=== PATIENT | female | born 1980 | race Caucasian/White ===

== ENCOUNTER 2019-10-16 19:02 | Inpatient (IN) | payer SELFPAY ==
[2019-10-16 19:14] VITALS: BP 145/98; PULSE 125; RESP 14; TEMP 35.8; O2SAT 97; BMI 24.7
--- NOTE | 2019-10-16 19:33 | ECG_ITS ---
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 Measurements Intervals [place] Rate: 94 P: 70 WI: 133 QRS: 68 QRSD: 82 T: 60 QT: 341 QTc: 428 Interpretive Statements SINUS RHYTHM No previous ECG available for comparison Electronically Signed On 10-17-2019 19:03:26 CDT by Emeli Montes M.D. [id number]
--- NOTE | 2019-10-16 19:45 | ED_ITS ---
HPI - Psych General: Chief Complaint: Psychiatric Symptoms Stated Complaint: suicidal Time Seen by Provider: 10/16/19 19:33 Source: patient Mode of arrival: ambulatory Limitations: no limitations History of Present Illness: HPI Narrative: Elly is a 38-year-old female who comes in feeling suicidal. She states she is very depressed and has cycles of severe depression. She states she has a plan to kill herself and that plan is to drive out into traffic in her car. Patient currently wants to get help but denies any previous ingestions. Review of Systems Const: Denies: fever(s), chills, body aches, fatigue, malaise or diaphoresis Eyes: Denies: change in vision, blurry vision, blind spots, photophobia, eye discharge or eye redness ENMT: Denies: throat pain, odynophagia, hoarseness, swelling of lips/tongue, oral sores, ear or mastoid pain, ear discharge, change in hearing or nasal discharge Card: Denies: chest pain, palpitations, irregular heart rhythm, edema, lightheadedness, syncope, pre-syncope, dyspnea on exertion or orthopnea Resp: Denies: dyspnea, productive cough, non-productive cough, wheezing, hemoptysis or chest congestion GI: Denies: abdominal pain, nausea, vomiting, hematemesis, coffee ground emesis, heartburn, diarrhea, constipation, GI cramping, hematochezia or melena : Denies: flank pain, dysuria, urinary frequency, urinary urgency or hematuria Musc: Denies: neck pain, back pain, extremity pain, extremity swelling, joint pain, joint swelling, joint redness, joint warmth or joint stiffness Skin/Breast: Denies: rash, pruritus, erythema, skin tenderness or jaundice Neuro: Denies: headache(s), numbness in extremities, weakness in extremities, sensory changes, lack of coordination, difficulty walking, dizziness, vertigo, confusion, Slurred speech present or seizure-like activity Cooper/Lymph: Denies: easy bruising, easy bleeding, petechiae, purpura or enlarged lymph nodes All/Imm: Denies: urticaria, throat swelling, tongue swelling, facial swelling or acute wheezing PFS ED PFSH: Medical History Anxiety Depression PTSD (post-traumatic stress disorder) Physical Exam Const: COMMON NORMALS: no acute distress, patient oriented x3, no limitations, healthy appearing and well nourished GENERAL APPEARANCE: cooperative, well kempt and well developed HENMT: COMMON NORMALS: normocephalic, atraumatic, external ears normal, EAC's normal and Normal external nose present HEAD & SCALP: normal to inspection, normocephalic and atraumatic FACE & SINUS: normal facial exam and face symmetric NOSE: Normal external nose present and Normal nares present EXTERNAL EAR: Yes external ears normal EXTERNAL AUDITORY CANAL: EAC's normal MOUTH: Normal oral and palatal mucosa present, lip normal and tongue normal Eye: COMMON NORMALS: Equal, round and reactive pupils present and conjunctivae normal GENERAL EYE: appearance normal, both eyes and all related structures ALIGNMENT: Yes alignment normal PERIORBITAL: periorbital findings normal EYELID: eyelids normal CONJUNCTIVA: Yes conjunctivae normal SCLERA: sclerae normal PUPIL: Yes Equal, round and reactive pupils present Neck/C-Spine: COMMON NORMALS: full ROM, no lymphadenopathy, supple, no meningeal signs and no JVD GENERAL: Yes normal visual inspection and Yes trachea midline Chest: COMMONS NORMALS: normal inspection of the chest and normal palpation of entire chest wall Resp: COMMON NORMALS: normal respiratory effort, No retractions and No use of accessory muscles EFFORT & INSPECTION: Yes able to speak in complete sentences and Yes symmetric chest movement AUSCULTATION: no crackles, no rales, no rhonchi and no wheezes Cardio: COMMON NORMALS: no JVD, regular rate, regular rhythm, S1 normal heart sound present and S2 normal heart sound present RATE: regular rate RHYTHM: regular rhythm HEART SOUNDS: S1 normal heart sound present, S2 normal heart sound present, no click, no gallops, no murmurs, no rubs and abnormal split S2 GI: COMMON NORMALS: Soft to palpation and No hepatosplenomegaly present PALPATION: Yes Soft to palpation, No Tenderness to palpation present (GI), No Guarding due to palpation present (GI), No Rigid due to palpation, Yes No hepatosplenomegaly present, No Hernia present, No Palpable mass present and No Pulsatile mass present : COMMON NORMALS: Yes no CVA tenderness BLADDER/KIDNEY EXAM: Yes no CVA tenderness EXTERNAL FEMALE EXAM: No Hernia present Back/Pelvis: COMMON NORMALS: no CVA tenderness, thoracic and lumbar spine normal to inspection, no thoracic nor lumbar tenderness and thoraco-lumbar ROM normal Extremity: COMMON NORMALS: normal to inspection, full ROM, capillary refill normal, no joint enlargement, no clubbing, cyanosis or edema and no calf tenderness Neuro: COMMON NORMALS: patient oriented x3, CN's II-XII intact bilaterally, moves all extremities, no focal motor deficits and no sensory deficits noted MENINGEAL SIGNS: Yes no meningeal signs SPEECH: speech normal Psych: COMMON NORMALS: mental status grossly normal, Normal thought process present, cooperative, normal affect, speech normal and activity/motor behavior normal APPEARANCE: Yes well kempt SPEECH: Yes normal speech THOUGHT PROCESS: Normal thought process present Skin: COMMON NORMALS: no rashes or lesions noted, turgor normal, no jaundice, no petechiae and no mottling GENERAL SKIN EXAM: no rashes or lesions noted and turgor normal MDM - Psych MDM Narrative: Medical decision making narrative: The case was reviewed with Dr. Green and he agrees to admit the patient for psychiatric evaluation. EKG Data^: EKG 1: Attestation: I personally reviewed and interpreted this EKG as follows: EKG interpretation date: 10/16/19 EKG interpretation time: 20:06 Interpretation: Normal sinus rhythm at 94 beats a minute, no acute ST-T wave changes. No blocks, normal intervals. Discharge Plan Discharge Patient Disposition: Placed in Observation Admit Provider: Antolin Green Clinical Impression: Suicidal ideation, Depression, PTSD (post-traumatic stress disorder), Anxiety Condition: Stable Coding Level of Care Code ED Supervisor Dry Cleaning for Chg Fwadoins
[2019-10-16 19:55] LABS: Basophils % 0.5 %; Eosinophils # 0.1 10^3/uL (0.0-0.8); Eosinophils % 1.7 %; Hematocrit 48.1 % (37.0-47.0); Hemoglobin 16.1 g/dL (11.5-15.3); Lymphocytes # 2.6 10^3/uL (0.8-4.8); Lymphocytes % 33.9 %; Mean Corpuscular HGB Conc 33.5 g/dL (30.0-36.0); Mean Corpuscular Volume 89.6 fL (81-99); Mean Platelet Volume 9.5 fL (7.4-10.4); Monocytes # 0.6 10^3/uL (0.2-0.9); Monocytes % 7.9 %; Neutrophils # 4.25 10^3/uL (1.8-7.7); Neutrophils % 55.6 %; Nucleated Red Blood Cells % 0 %; Platelet Count 332 10^3/cmm (130-400); Red Blood Count 5.37 10^6/uL (4.1-5.3); Red Cell Distribution Width 12.1 % (12.1-15.1); White Blood Count 7.6 10^3/uL (4.0-10.0)
[2019-10-16] MEDS: LORazepam 2 mg Tablet PO (20:01)
[2019-10-16 20:50] LABS: Lithium 0.1 mmol/L (0.6-1.2)
[2019-10-16 20:51] LABS: Alanine Aminotransferase 17 U/L (0-33); Albumin Level 4.8 g/dL (3.5-5.2); Alcohol Level 102 mg/dL (0-10); Alkaline Phosphatase 66 IU/L (35-105); Anion Gap 19.6 (5-19); Aspartate Amino Transferase 17 U/L (0-32); Blood Urea Nitrogen 9 mg/dL (6-20); Calcium 10.2 mg/dL (8.5-10.5); Carbon Dioxide 20 mmol/L (22-29); Chloride 103 mmol/L (98-107); Globulin 2.5 g/dL (1.3-4.6); Glomerular Filtration Rate 92.7 mL/min (90-130); Glucose 120 mg/dL (65-115); Osmolality Calculated 285 mOsm/kg (285-295); Phenytoin Dilantin 0.8 ug/mL (10-20); Potassium 3.6 mmol/L (3.5-5.1); Sodium 139 mmol/L (136-145); Thyroid Stimulating Hormone 0.73 uIU/mL (0.27-4.20); Total Bilirubin 0.3 mg/dL (0.15-1.2); Total Protein 7.3 g/dL (6.6-8.7); Valproic Acid Level 2.8 ug/mL (50-100)
[2019-10-16 21:05] LABS: INR 0.91 (0.8-1.2)
[2019-10-16 21:13] LABS: Acetaminophen < 5.0 ug/mL (10-30); Salicylate < 0.3 mg/dL (3-10)
[2019-10-16 21:14] VITALS: BP 132/84; PULSE 86; RESP 14; O2SAT 99
[2019-10-16 22:04] VITALS: BP 122/86; PULSE 89; RESP 17; TEMP 36.7; O2SAT 98
[2019-10-16 22:23] LABS: HCG, Serum Qual Negative (Negative)
[2019-10-16 23:21] LABS: Add Urine Microscopic? YES; Bilirubin Urine Neg (NEGATIVE); Blood Urine Neg (Negative); Glucose Urine UA Norm (Normal); Ketones Urine Negative (Negative); Leukocyte Esterase Urine Negative (Negative); Nitrate Urine Negative (Negative); Protein Urine Neg (Negative); Specific Gravity, Urine 1.015 (1.005-1.030); Urine Appearance SL Hazy (CLEAR); Urine Color Yellow (Yellow); Urobilinogen Urine Norm (Negative); pH Urine 5 (5-7)
[2019-10-16 23:22] LABS: Bacteria Urine 1+; RBC Urine 0-4 /hpf (0-2); Squamous Epithelial Cell Urine 15-25 (0-5); WBC Urine 0-4 /hpf (0-5)
[2019-10-16 23:38] LABS: Amphetamines Screen Urine Positive (Negative); Barbiturates Screen Urine Negative (Negative); Benzodiazepines Screen Urine Positive (Negative); Cocaine Screen Urine Negative (Negative); Opiate Screen Urine Negative (Negative); PCP Screen Urine Negative (Negative); THC Screen Urine Positive (Negative)
[2019-10-17 06:00] VITALS: BP 115/77; PULSE 75; RESP 16; TEMP 36.7; O2SAT 98
[2019-10-17] MEDS: nicotine 2 mg Gum BUCCAL (13:04)
[2019-10-17 14:00] VITALS: BP 120/81; PULSE 72; RESP 18; TEMP 36.5; O2SAT 99
[2019-10-17] MEDS: acetaminophen 325 mg Tablet 650 MG PO (14:25)
--- NOTE | 2019-10-17 16:34 | PM.NHP ---
Providers/Chief Complaint Admitting Physician: Antolin Green MD Primary Care Provider: SUHAS Monteiro Chief Complaint: mhe HPI NPU History of Present Illness Elly Rosado is a 38 year old female who has been successfully treated for depression in the past with Lunesta but stopped taking the medication for financial reasons about 6 months ago. Over the past month, she has become increasingly despondent, irritable, and dominated by feelings of hopelessness and worthlessness. She has difficulty sleeping. Her brain health is compromised by a work schedule that requires her to should change shifts. She has poor hedonic capacity and is not looking forward to anything coming up in the future. She reports anhedonia. She also reports a significant levels of substance use but does not think that her alcohol and methamphetamine and marijuana use are an issue in her level of depression. A week ago she started having a suicidal thoughts. Finally in the past several days, she reached a point where she realized she had to get something done. She denied active suicide intent or plan but felt that that would be a logical outcome if no intervention were provided. She has no history of heriberto or manic symptoms. Her urine drug screen shows: Laboratory Tests 10/16/19 10/16/19 19:46 22:34 Urine Opiates Screen Negative Ur Barbiturates Screen Negative Ur Phencyclidine Scrn Negative Ur Amphetamines Screen Positive H U Benzodiazepines Scrn Positive H Urine Cocaine Screen Negative U Marijuana (THC) Screen Positive H Ethyl Alcohol 102 H She says that she used amphetamines a few days ago. She says she smokes marijuana regularly. She denies that he uses alcohol in excess. However it is also noted that she is quite vague when pressed for exact frequency and severity of use. She does not feel that rehabilitation programs are necessary intervention for her and believes that she will cease her substance use when she is no longer depressed. She gives her history of doing that when she was last on Pristiq as evidenced. Mental health history: She has 1 prior hospitalization in this facility in 2014. Up until May 2019, she was taking Pristiq 100 mg daily. She has not worked for her continuously for a period of 3 years. She stopped the medication because she ran out of money. She did report significant withdrawal symptoms once stopping it suddenly. However she is willing to risk again experiencing that withdrawal to get the benefit of going back on the medication. She also has taken Lunesta 3 mg at bedtime for sleep. She last saw her outpatient psychiatrist in March 2020: RECENT/INTERVAL HISTORY: 38 yr old female, presents to [facility] today for medication management. -Continues to report sleep pattern as excessive, I would rather sleep then fight with my family, my depression is getting worse, my daughter had a melt down and wanted to commit suicide, she also lost her virginity, after Thanksgiving had to confront my dad with a movie of child porn, called police, then got scared and burned the tape, and so lost my relationship with my dad and sister, and relationship with boyfriend of almost 15 years is on the garcia, a lot has been going on, with boyfriend saying the medication isn't working, so been smoking a lot of pot so can relax for a minute, went out drinking with friends two weeks ago, bottle of whiskey, fell on face trying to go pee . -Depressive episodes increased with anxiety, feeling fatigued and tired all the time, went to PCP, and was referred to orthopedic surgeon, and will now have to have surgery on left hand for ligament repair. -Nutritional intake reported as adequate, no appetite; taking Vistaril 50 mg two to three times per day. -Elly denies suicidal ideation/plan, denies homicidal ideation/plan, auditory/visual hallucinations; no delusions or paranoia. ASSESSMENT: 1. Major depressive disorder recurrent, moderate (F33.1) 2. Generalized anxiety disorder (F41.1) 3. PTSD, Chronic (F43.12) 4. Cannabis dependence, moderate (F12.20) 5. R/O Cluster B traits PLAN: -Continue Lunesta 3 mg at bedtime as needed for sleep (No prescription today, has medication remaining) -Continue Pristiq 100 mg in morning (No prescription today, has refills until 06/15/19) -Increase Vistaril to 50 mg three times per day as needed for anxiety (#90, 3 refills) Social history: The patient grew up in [place]. She was removed from her family's custody at age 6 because of her parents persistent alcohol and drug use. She came to live family in [place]. Her mother remains in [place] and she has only seen her briefly. Her father is now living in [place] nearby her. There has been significant family discord subsequent to the patient discovering that her father had child pornography on his computer and reporting him to the police. She was once. She is currently living with her significant other . 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 Thus, 4 nights a week, she will spend all night up doing her job but then the other 3 nights she tries to shift her schedule back around where she is awake during the day and asleep at night. Legal history: There is no record of incarceration, arrest, or conviction in the [place] legal record. Past medical history: There are no changes from her medical status as delineated in her emergency room physical exam and evaluation. She does report that she has never experienced a seizure of any type. Meds NPU Home Medications Medication Instructions Recorded Confirmed Last Taken Type eszopiclone 3 mg tablet 3 mg PO BEDTIME PRN tab 04/24/19 10/16/19 Unknown History hydroxyzine pamoate 50 mg capsule 50 mg PO TID PRN 04/24/19 10/16/19 10/16/19 History ibuprofen 200 mg capsule 800 mg PO PRN cap 04/24/19 10/16/19 Unknown History diclofenac sodium 50 mg 50 mg PO TID 30 Days #90 tab 08/07/19 10/16/19 Unknown Rx tablet,delayed release naproxen sodium [Aleve] 440 mg PO PRN 10/16/19 10/16/19 10/16/19 13:00 History Allergies Allergy/AdvReac Type Severity Reaction Status Date / Time haloperidol [From Haldol] Allergy Unknown Verified 10/16/19 20:12 Sulfa (Sulfonamide Allergy Unknown Verified 10/16/19 20:12 Antibiotics) spicy foods Allergy Unknown Uncoded 04/24/19 10:32 [facility] NPU PFSH: Medical History Anxiety Depression PTSD (post-traumatic stress disorder) Mental Status Exam MSE Comments: Mental Status Exam: The patient is alert interpersonally engaged female appearing approximately her stated age. She looks fatigued. She is believed to be a reliable informant as the information she provides is internally consistent and consistent with that in the chart. Appearance: hygiene is fair; no gross neurological deficits., gait is unremarkable; AIMS=0 Speech: Speech is of normal rate and rhythm and easily understood. Thought processes: Thought processes are abstract. Judgment is adequate for safety. Associations: intact Psychotic processes: There is no indication of guarding or paranoia. There is no attention to the internal stimuli. Auditory and visual hallucinations are denied. Judgment: Insight is fair. Problem solving skills are adequate for safety. Orientation: The patient is oriented to person, place time and situation. Memory: no deficits noted in immediate, intermediate, or remote spheres. Attention: The patient is alert and interpersonally engaged. Language: Verbalizations are coherent. Fund of knowledge: Fund of knowledge is adequate. Affect/Mood: Affect is consistent with a depressed mood. She denied suicidal ideation Affective range constricted Psychosis: perception unimpaired except through cognitive distortion; reality testing intact. Vitals/I&O/Wt Last Vital Signs Temp 97.7 F 10/17/19 14:00 Pulse 72 10/17/19 14:00 Resp 18 10/17/19 14:00 BP 120/81 10/17/19 14:00 Pulse Ox 99 10/17/19 14:00 Weight last 48 hrs Weight 69.672 kg Data NPU : 10/16/19 19:46 10/16/19 19:46 A&P Additional A&P Information Diagnoses: Major depression?recurrent, severe, without psychotic features Assessment: A variety of interventions were discussed with the patient including other antidepressant treatments. However she was highly motivated to return to the utilization of Pristiq. Treatment plan: Due to the psychiatric conditions and treatment listed in the Assessment and Plan - the patient requires continued hospitalization. Will provide a safe and therapeutic environment for patient.. Will continue inpatient treatment to allow for medication adjustment and monitoring. Will continue q15 min safety checks. Hospital day #1: The patient was admitted to the adult psychiatric unit and entered into the full array of individual and group therapies as part of the unit protocol. She was also provided 24-hour services from registered nurses and with psychiatric training. It was decided to initiate Pristiq 50 mg daily after discussing with patient the potential benefits and side effects and time course of onset of benefits. Contingency plan for unexpected or unwanted side effects as discontinuation. We also decided to replace Lunesta with imipramine 25 mg at bedtime because Lunesta is not on the hospital formulary. Monitor patient's mood, sleep, appetite, and behavior closely. Encourage patient to participate in individual and group therapeutic sessions on the valero. Estimated length of stay 5 days The expected benefits and potential side effects of patient's psychiatric medications were discussed with the patient. The patient understands and consents to treatment.CRITERIA FOR DISCHARGE: stable on medications and no longer an imminent risk Involuntary Hold Information 96 Hour Hold: 96 Hour Involuntary Admission: No Attestations NPU Medical Necessity Statement*: Patient will remain in the hospital another 2-4 nights for assessment of medication efficacy and tolerability. Coding Level of Care Code Acute Movie Editor for Seun Klein
[2019-10-17] MEDS: desvenlafaxine 50 mg Tablet PO (17:25)
[2019-10-17] MEDS: sulfamethoxazole-trimeth DS 160-800 mg Tablet 1 TAB PO (20:46)
[2019-10-17 22:00] VITALS: BP 120/82; PULSE 75; RESP 17; TEMP 36.6; O2SAT 99
[2019-10-18 06:00] VITALS: BP 139/91; PULSE 70; RESP 18; TEMP 36.7; O2SAT 97
[2019-10-18] MEDS: desvenlafaxine 50 mg Tablet PO (08:30)
--- NOTE | 2019-10-18 09:14 | PM.NPN ---
Subjective NPU Subjective: Interval history: I went to breakfast and somebody had dumped my tray on the floor. I can get you a new tray. Is there anything else I can do for you. Now. I am okay. Mental Status Exam MSE Comments: Mental Status Exam: The patient is alert interpersonally engaged female appearing approximately her stated age. She looks fatigued. She is believed to be a reliable informant as the information she provides is internally consistent and consistent with that in the chart. Appearance: hygiene is fair; no gross neurological deficits., gait is unremarkable; AIMS=0 Speech: Speech is of normal rate and rhythm and easily understood. Thought processes: Thought processes are abstract. Judgment is adequate for safety. Associations: intact Psychotic processes: There is no indication of guarding or paranoia. There is no attention to the internal stimuli. Auditory and visual hallucinations are denied. Judgment: Insight is fair. Problem solving skills are adequate for safety. Orientation: The patient is oriented to person, place time and situation. Memory: no deficits noted in immediate, intermediate, or remote spheres. Attention: The patient is alert and interpersonally engaged. Language: Verbalizations are coherent. Fund of knowledge: Fund of knowledge is adequate. Affect/Mood: Affect is consistent with a depressed mood. She denied suicidal ideation Affective range constricted Psychosis: perception unimpaired except through cognitive distortion; reality testing intact. Vitals/I&O/Wt Last Vital Signs Temp 98.0 F 10/18/19 06:00 Pulse 70 10/18/19 06:00 Resp 18 10/18/19 06:00 BP 139/91 10/18/19 06:00 Pulse Ox 97 10/18/19 06:00 Weight last 48 hrs Weight 69.672 kg Data NPU : 10/16/19 19:46 10/16/19 19:46 A&P Additional A&P Information Diagnoses: Major depression?recurrent, severe, without psychotic features Assessment: A variety of interventions were discussed with the patient including other antidepressant treatments. However she was highly motivated to return to the utilization of [employer]. Treatment plan: Due to the psychiatric conditions and treatment listed in the Assessment and Plan - the patient requires continued hospitalization. Will provide a safe and therapeutic environment for patient.. Will continue inpatient treatment to allow for medication adjustment and monitoring. Will continue q15 min safety checks. Hospital day #1: The patient was admitted to the adult psychiatric unit and entered into the full array of individual and group therapies as part of the unit protocol. She was also provided 24-hour services from registered nurses and with psychiatric training. It was decided to initiate Pristiq 50 mg daily after discussing with patient the potential benefits and side effects and time course of onset of benefits. Contingency plan for unexpected or unwanted side effects as discontinuation. We also decided to replace Lunesta with imipramine 25 mg at bedtime because Lunesta is not on the hospital formulary. Hospital day #2: I went to breakfast and somebody had dumped my tray on the floor. I can get you a new tray. Is there anything else I can do for you. Now. I am okay. Plan: Day #2 on Pristiq 50 mg daily. Patient is not an imminent risk to self or others Monitor patient's mood, sleep, appetite, and behavior closely. Encourage patient to participate in individual and group therapeutic sessions on the valero. Estimated length of stay 5 days The expected benefits and potential side effects of patient's psychiatric medications were discussed with the patient. The patient understands and consents to treatment.CRITERIA FOR DISCHARGE: stable on medications and no longer an imminent risk Involuntary Hold Information 96 Hour Hold: 96 Hour Involuntary Admission: No Attestations NPU Medical Necessity Statement*: Patient will remain in the hospital another 2-4 nights for assessment of medication efficacy and tolerability. Coding Level of Care Code Acute Accounting Manager Controller for Seun Klein
[2019-10-18 13:34] VITALS: BP 128/92; PULSE 99; RESP 20; TEMP 36.7; O2SAT 98
[2019-10-18] MEDS: acetaminophen 325 mg Tablet 650 MG PO (15:52)
--- NOTE | 2019-10-18 16:37 | P.DS_ITS ---
Reason for Visit Reason for Visit: [facility] Hospital Course Hospital Course History of Present Illness Elly Rosado is a 38 year old female who has been successfully treated for depression in the past with Lunesta but stopped taking the medication for financial reasons about 6 months ago. Over the past month, she has become increasingly despondent, irritable, and dominated by feelings of hopelessness and worthlessness. She has difficulty sleeping. Her brain health is compromised by a work schedule that requires her to should change shifts. She has poor hedonic capacity and is not looking forward to anything coming up in the future. She reports anhedonia. She also reports a significant levels of substance use but does not think that her alcohol and methamphetamine and marijuana use are an issue in her level of depression. A week ago she started having a suicidal thoughts. Finally in the past several days, she reached a point where she realized she had to get something done. She denied active suicide intent or plan but felt that that would be a logical outcome if no intervention were provided. She has no history of heriberto or manic symptoms. Her urine drug screen shows: Laboratory Tests 10/16/19 10/16/19 19:46 22:34 Urine Opiates Screen Negative Ur Barbiturates Screen Negative Ur Phencyclidine Scrn Negative Ur Amphetamines Screen Positive H U Benzodiazepines Scrn Positive H Urine Cocaine Screen Negative U Marijuana (THC) Screen Positive H Ethyl Alcohol 102 H She says that she used amphetamines a few days ago. She says she smokes marijuana regularly. She denies that he uses alcohol in excess. However it is also noted that she is quite vague when pressed for exact frequency and severity of use. She does not feel that rehabilitation programs are necessary intervention for her and believes that she will cease her substance use when she is no longer depressed. She gives her history of doing that when she was last on Pristiq as evidenced. Mental health history: She has 1 prior hospitalization in this facility in 2014. Up until May 2019, she was taking Pristiq 100 mg daily. She has not worked for her continuously for a period of 3 years. She stopped the medication because she ran out of money. She did report significant withdrawal symptoms once stopping it suddenly. However she is willing to risk again experiencing that withdrawal to get the benefit of going back on the medication. She also has taken Lunesta 3 mg at bedtime for sleep. She last saw her outpatient psychiatrist in March 2020: RECENT/INTERVAL HISTORY: 38 yr old female, presents to [facility] today for medication management. -Continues to report sleep pattern as excessive, I would rather sleep then fight with my family, my depression is getting worse, my daughter had a melt down and wanted to commit suicide, she also lost her virginity, after Thanksgiving had to confront my dad with a movie of child porn, called police, then got scared and burned the tape, and so lost my relationship with my dad and sister, and relationship with boyfriend of almost 15 years is on the garcia, a lot has been going on, with boyfriend saying the medication isn't working, so been smoking a lot of pot so can relax for a minute, went out drinking with friends two weeks ago, bottle of whiskey, fell on face trying to go pee . -Depressive episodes increased with anxiety, feeling fatigued and tired all the time, went to PCP, and was referred to orthopedic surgeon, and will now have to have surgery on left hand for ligament repair. -Nutritional intake reported as adequate, no appetite; taking Vistaril 50 mg two to three times per day. -Elly denies suicidal ideation/plan, denies homicidal ideation/plan, auditory/visual hallucinations; no delusions or paranoia. ASSESSMENT: 1. Major depressive disorder recurrent, moderate (F33.1) 2. Generalized anxiety disorder (F41.1) 3. PTSD, Chronic (F43.12) 4. Cannabis dependence, moderate (F12.20) 5. R/O Cluster B traits PLAN: -Continue Lunesta 3 mg at bedtime as needed for sleep (No prescription today, has medication remaining) -Continue Pristiq 100 mg in morning (No prescription today, has refills until 06/15/19) -Increase Vistaril to 50 mg three times per day as needed for anxiety (#90, 3 refills) Social history: The patient grew up in [place]. She was removed from her family's custody at age 6 because of her parents persistent alcohol and drug use. She came to live family in [place]. Her mother remains in [place] and she has only seen her briefly. Her father is now living in [place] nearby her. There has been significant family discord subsequent to the patient discovering that her father had child pornography on his computer and reporting him to the police. She was once. She is currently living with her significant other . 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 Thus, 4 nights a week, she will spend all night up doing her job but then the other 3 nights she tries to shift her schedule back around where she is awake during the day and asleep at night. Legal history: There is no record of incarceration, arrest, or conviction in the [place] legal record. Past medical history: There are no changes from her medical status as delineated in her emergency room physical exam and evaluation. She does report that she has never experienced a seizure of any type. Mental Status Exam: The patient is alert interpersonally engaged female appearing approximately her stated age. She looks fatigued. She is believed to be a reliable informant as the information she provides is internally consistent and consistent with that in the chart. Appearance: hygiene is fair; no gross neurological deficits., gait is unremarkable; AIMS=0 Speech: Speech is of normal rate and rhythm and easily understood. Thought processes: Thought processes are abstract. Judgment is adequate for safety. Associations: intact Psychotic processes: There is no indication of guarding or paranoia. There is no attention to the internal stimuli. Auditory and visual hallucinations are denied. Judgment: Insight is fair. Problem solving skills are adequate for safety. Orientation: The patient is oriented to person, place time and situation. Memory: no deficits noted in immediate, intermediate, or remote spheres. Attention: The patient is alert and interpersonally engaged. Language: Verbalizations are coherent. Fund of knowledge: Fund of knowledge is adequate. Affect/Mood: Affect is consistent with a depressed mood. She denied suicidal ideation Affective range constricted Psychosis: perception unimpaired except through cognitive distortion; reality testing intact. Diagnoses: Major depression?recurrent, severe, without psychotic features Assessment: A variety of interventions were discussed with the patient including other antidepressant treatments. However she was highly motivated to return to the utilization of [facility]. Treatment plan: Due to the psychiatric conditions and treatment listed in the Assessment and Plan - the patient requires continued hospitalization. Will provide a safe and therapeutic environment for patient.. Will continue inpatient treatment to allow for medication adjustment and monitoring. Will continue q15 min safety checks. Hospital day #1: The patient was admitted to the adult psychiatric unit and ente red into the full array of individual and group therapies as part of the unit protocol. She was also provided 24-hour services from registered nurses and with psychiatric training. It was decided to initiate Pristiq 50 mg daily after discussing with patient the potential benefits and side effects and time course of onset of benefits. Contingency plan for unexpected or unwanted side effects as discontinuation. We also decided to replace Lunesta with imipramine 25 mg at bedtime because Lunesta is not on the hospital formulary. Hospital Day #2: pt discussed [previously her need to go back to work to maintain employment. When first interviewed, her only interest was having her meal tray replaced. It seemed to be a personal insult to her. It was rectified and we discussed recommendation for medications. Later in the day, she demanded to leave against medical advice. She was not an imminent danger to self or others and was permitted to do so. She did receive prescriptions to cover med ication changes. Involuntary Hold Information 96 Hour Hold: 96 Hour Involuntary Admission: No Discharge Data Data Completed and Pending: Pending at discharge Category Date Time Status HCG Qualitative U rine Stat Lab 10/16/19 19:33 Ordered Vitals: Last Vital Signs Temp 98.0 F 10/18/19 13:34 Pulse 99 10/18/19 13:34 Resp 20 H 10/18/19 13:34 BP 128/92 10/18/19 13:34 Pulse Ox 98 10/18/19 13:34 Discharge Plan Discharge Patient Disposition: Left Against Medical Advice Condition: Stable Prescriptions: New hydroxyzine pamoate 25 mg Capsule 50 mg PO Q6H PRN (Reason: Anxiety) Qty: 60 RF: 3 trazodone 50 mg Tablet 50 mg PO BEDTIME PRN (Reason: Sleep) Qty: 10 RF: 0 Diclofenac Sodi 50 mg PO TID Qty: 90 RF: 1 desvenlafaxine succinate 50 mg Tablet Extended Release 24 Hr 50 mg PO DAILY Qty: 30 RF: 3 imipramine HCl 25 mg Tablet 50 mg PO BEDTIME Qty: 30 RF: 3 sulfamethoxazole-trimethoprim 800-160 mg Tablet 1 tab PO BEDTIME Qty: 4 RF: 0 hydroxyzine pamoate 25 mg Capsule 50 mg PO TID PRN (Reason: anxiety) Qty: 60 RF: 1 Discontinued eszopiclone [Lunesta] 3 mg tablet 3 mg PO BEDTIME PRN (Reason: sleep) RF: 0 hydroxyzine pamoate [Vistaril] 50 mg capsule 50 mg PO TID PRN (Reason: anxiety) RF: 0 ibuprofen 200 mg capsule 800 mg PO PRN RF: 0 diclofenac sodium 50 mg tablet,delayed release (DR/EC) 50 mg PO TID 30 Days Qty: 90 RF: 2 Aleve 220 mg Tablet 440 mg PO PRN RF: 0 Discharge Orders: Discharge Order (Routine); Ordered 10/18/19 Ordered By: Antolin Green Referrals: [facility] [Outside] - 1-3 days (follow-up with a provider of choice upon discharge. C is an option. [facility] has walk-in hours if your unable to schedule an appointment. Sunday through Sunday 7:30-2:30 walk-in hours. ) [facility] [Outside] (If interested, you could seek out substance abuse treatment. ) Discharge Attestations NPU Time Spent in Discharge Care*: less than 30 min Coding Level of Care Code Acute Hot Dog Vendor for Seun Klein
[2019-10-18 16:38] VITALS: BP 128/92; PULSE 99; RESP 20; TEMP 36.7; O2SAT 98
--- NOTE | 2019-10-18 16:57 | PC.NURSE ---
Pt discharged to home client provided discharge instructions. Client denies SI, hi and hallucinations at time of discharge. Client ambulated off the unit with no signs and symptoms of distress noted.
== END 2019-10-18 17:04 | disposition left against medical advice (07) | DRG 885 ==
LOC: ER 19:33 → NP 20:02
PROVIDERS: Emergency Medicine; Admitting Provider Psychiatry & Neurology Psychiatry; PCP Nurse Practitioner; Visit Provider Psychiatry & Neurology Psychiatry
DX: F33.1 Major depressive disorder, recurrent, moderate (principal); F12.20 Cannabis dependence, uncomplicated; F15.10 Other stimulant abuse, uncomplicated; Z53.29 Procedure and treatment not carried out because of patient's decision for other reasons; F43.12 Post-traumatic stress disorder, chronic; F41.1 Generalized anxiety disorder
CPT/HCPCS: 12345; 80053; 80156; 80164; 80178; 80185; 80306; 80307; 81001; 81003; 84443; 84703; 85025; 85610; 93005; 99282

== ENCOUNTER 2019-11-02 06:21 | Inpatient (IN) | payer SELFPAY ==
[2019-11-02 06:21] VITALS: BP 127/96; PULSE 121; RESP 20; TEMP 37; O2SAT 97; BMI 24.8
[2019-11-02] MEDS: diphenhydrAMINE 50 mg/mL SDV 1mL IM (06:49)
[2019-11-02] MEDS: LORazepam 2 mg/mL INJ 1 mL IM (06:49)
--- NOTE | 2019-11-02 06:49 | PC.NURSE ---
Patient refuses to change into gown
[2019-11-02 06:50] VITALS: BP 154/105; PULSE 105; RESP 20; O2SAT 98
[2019-11-02] MEDS: lidocaine 1% INJ 20 mL INJECTION (06:50)
[2019-11-02 06:54] LABS: Basophils % 0.4 %; Eosinophils # 0.1 10^3/uL (0.0-0.8); Eosinophils % 0.5 %; Hematocrit 44.3 % (37.0-47.0); Hemoglobin 14.9 g/dL (11.5-15.3); Lymphocytes # 2.4 10^3/uL (0.8-4.8); Lymphocytes % 23.3 %; Mean Corpuscular HGB Conc 33.6 g/dL (30.0-36.0); Mean Corpuscular Hemoglobin 29.4 pg (28.0-34.0); Mean Corpuscular Volume 87.5 fL (81-99); Mean Platelet Volume 9.6 fL (7.4-10.4); Monocytes # 0.7 10^3/uL (0.2-0.9); Monocytes % 7.2 %; Neutrophils # 6.96 10^3/uL (1.8-7.7); Neutrophils % 68.3 %; Nucleated Red Blood Cells % 0 %; Platelet Count 321 10^3/cmm (130-400); Red Blood Count 5.06 10^6/uL (4.1-5.3); Red Cell Distribution Width 12.1 % (12.1-15.1); White Blood Count 10.2 10^3/uL (4.0-10.0)
--- NOTE | 2019-11-02 06:55 | PC.NURSE ---
Patient refused EKG
[2019-11-02 07:19] LABS: Alanine Aminotransferase 20 U/L (0-33); Albumin Level 5.2 g/dL (3.5-5.2); Alcohol Level 119 mg/dL (0-10); Alkaline Phosphatase 72 IU/L (35-105); Anion Gap 17.5 (5-19); Aspartate Amino Transferase 22 U/L (0-32); Blood Urea Nitrogen 18 mg/dL (6-20); Carbon Dioxide 23 mmol/L (22-29); Chloride 99 mmol/L (98-107); Glucose 88 mg/dL (65-115); Osmolality Calculated 278 mOsm/kg (285-295); Potassium 3.5 mmol/L (3.5-5.1); Sodium 136 mmol/L (136-145); Thyroid Stimulating Hormone 2.98 uIU/mL (0.27-4.20); Total Bilirubin 0.3 mg/dL (0.15-1.2); Total Protein 8.2 g/dL (6.6-8.7)
[2019-11-02 07:20] LABS: Acetaminophen < 5.0 ug/mL (10-30); Salicylate < 0.3 mg/dL (3-10)
--- NOTE | 2019-11-02 07:20 | W.ED.PSYCH ---
HPI - Psych General: Chief Complaint: Psychiatric Symptoms Stated Complaint: SI, ETOH Time Seen by Provider: 11/02/19 06:27 History of Present Illness: MD complaint: suicidal ideation, feels depressed and altered mental status Onset (ago): unknown Duration: constant History of same: Yes Relieving factors: none Exacerbating factors: alcohol and drug use Context: recent alcohol abuse and recent drug abuse Associated psychiatric symptoms: depression, suicidal ideation and racing thoughts Associated symptoms: Reports depression, suicidal ideation and racing thoughts Treatments prior to arrival: none If self harm: admits thoughts of self harm and has acted on plan Review of Systems General: Reports: 10 or more systems reviewed and unremarkable except in HPI and below Psych: Reports: depression and suicidal ideation PFSH ED PFSH: Medical History Anxiety Depression PTSD (post-traumatic stress disorder) Physical Exam Const: COMMON NORMALS: no acute distress, patient oriented x3, no limitations and alert HENMT: COMMON NORMALS: normocephalic, atraumatic, external ears normal and Normal external nose present HEAD & SCALP: normocephalic and atraumatic FACE & SINUS: normal facial exam NOSE: Normal external nose present EXTERNAL EAR: Yes external ears normal MOUTH: Normal oral and palatal mucosa present Neck/C-Spine: COMMON NORMALS: full ROM, no lymphadenopathy, supple, no meningeal signs and no JVD GENERAL: Yes normal visual inspection Resp: COMMON NORMALS: normal respiratory effort, No retractions, No use of accessory muscles and clear to auscultation bilaterally AUSCULTATION: clear to auscultation bilaterally Cardio: COMMON NORMALS: no JVD, regular rate and regular rhythm RATE: regular rate RHYTHM: regular rhythm GI: COMMON NORMALS: Normal to inspection, nondistended, normoactive bowel sounds present, Soft to palpation, non-tender, No hepatosplenomegaly present and no masses INSPECTION: Yes normal to inspection AUSCULTATION: Yes normoactive bowel sounds PALPATION: Yes Soft to palpation and Yes No hepatosplenomegaly present PERCUSSION: normal to percussion : COMMON NORMALS: Yes no CVA tenderness and Yes normal external appearance BLADDER/KIDNEY EXAM: Yes no CVA tenderness Back/Pelvis: COMMON NORMALS: no CVA tenderness, thoracic and lumbar spine normal to inspection, no thoracic nor lumbar tenderness, thoraco-lumbar ROM normal and straight leg raise negative bilaterally Extremity: COMMON NORMALS: normal to inspection, full ROM, capillary refill normal, no joint enlargement, no clubbing, cyanosis or edema, no calf tenderness and no pedal edema Neuro: COMMON NORMALS: patient oriented x3, moves all extremities, no focal motor deficits and no sensory deficits noted SENSORIUM/ORIENTATION: Yes alert MENINGEAL SIGNS: Yes no meningeal signs Psych: COMMON NORMALS: mental status grossly normal, Normal thought process present, cooperative, normal affect and speech normal SPEECH: Yes normal speech THOUGHT PROCESS: Normal thought process present Skin: COMMON NORMALS: no rashes or lesions noted, no wounds, turgor normal, no jaundice, no petechiae and no mottling GENERAL SKIN EXAM: no rashes or lesions noted and turgor normal Procedures Laceration Laceration 1: Site: hand Side (If applicable): left Description: flap Depth: simple, single layer Local Anesthetic: lidocaine 1% Pre-repair: wound explored and irrigated extensively Skin layer closed with: nylon Size (cm): 4-0 MDM - Psych Lab Data: Labs: Lab Results 11/02/19 11/02/19 Range/Units 06:45 06:45 WBC 10.2 H (4.0-10.0) 10^3/ uL RBC 5.06 (4.1-5.3) 10^6/u L Hgb 14.9 (11.5-15.3) g/dL Hct 44.3 (37.0-47.0) % MCV 87.5 (81-99) fL MCH 29.4 (28.0-34.0) pg MCHC 33.6 (30.0-36.0) g/dL RDW 12.1 (12.1-15.1) % Plt Count 321 (130-400) 10^3/c mm MPV 9.6 (7.4-10.4) fL Neut % (Auto) 68.3 % Lymph % (Auto) 23.3 % [place] % (Auto) 7.2 % Eos % (Auto) 0.5 % Baso % (Auto) 0.4 % Neut # (Auto) 6.96 (1.8-7.7) 10^3/u L Lymph # (Auto) 2.4 (0.8-4.8) 10^3/u L [place] # (Auto) 0.7 (0.2-0.9) 10^3/u L Eos # (Auto) 0.1 (0.0-0.8) 10^3/u L Baso # (Auto) 0.0 (0.0-0.1) 10^3/u L Nucleated RBC % (a uto) 0 % Nucleated RBCs # 0.0 /100WBC Sodium 136 (136-145) mmol/L Potassium 3.5 (3.5-5.1) mmol/L Chloride 99 (98-107) mmol/L Carbon Dioxide 23 (22-29) mmol/L Anion Gap 17.5 (5-19) BUN 18 (6-20) mg/dL Creatinine 0.9 (0.5-0.9) mg/dL GFR Calculation 69.0 L (90-130) mL/min Glucose 88 (65-115) mg/dL Calculated Osmolal ity 278 L (285-295) mOsm/k g Calcium 10.0 (8.5-10.5) mg/dL Total Bilirubin 0.3 (0.15-1.2) mg/dL AST 22 (0-32) U/L ALT 20 (0-33) U/L Alkaline Phosphata se 72 (35-105) IU/L Total Protein 8.2 (6.6-8.7) g/dL Albumin 5.2 (3.5-5.2) g/dL Globulin 3.0 (1.3-4.6) g/dL TSH 2.98 (0.27-4.20) uIU/ mL Salicylates < 0.3 L (3-10) mg/dL Acetaminophen < 5.0 L (10-30) ug/mL Ethyl Alcohol 119 H (0-10) mg/dL Discharge Plan Discharge Patient Disposition: Admitted As Inpatient Clinical Impression: Acute psychosis, Suicidal ideation, Polysubstance abuse Depression Qualifiers: Depression Type: major depressive disorder Major depression recurrence: recurrent Active/Remission status: currently active Major depression episode severity: severe Psychotic features: with psychotic features Qualified Code(s): F33.3 - Major depressive disorder, recurrent, severe with psychotic symptoms Drug-induced psychotic disorder Qualifiers: Complication of substance-induced condition: with delusions Qualified Code(s): F19.950 - Other psychoactive substance use, unspecified with psychoactive substance-induced psychotic disorder with delusions Condition: Fair Referrals: Silva Ponce FNP [Primary Care Provider] - Coding Level of Care Code ED Kinesiology Professor for Chg Fwd Exam Comprehensive
[2019-11-02 07:35] VITALS: RESP 18
--- NOTE | 2019-11-02 08:43 | XRR_ITS ---
PROCEDURE INFORMATION: Exam: XR Left Foot Exam date and time: 11/02/2019 9:09 AM Age: 39 years old Clinical indication: Injury or trauma; Fall; Initial encounter; Left; With foreign body; Injury date: Last night; Injury details: Laceration to the bottom of the foot with possible foreign body; Additional info: Lac and fb TECHNIQUE: Imaging protocol: XR Left foot. Views: 1 or 2 views. COMPARISON: CR Foot 3 views, LEFT* [id number] 12/05/2018 2:42 PM FINDINGS: Bones/joints: Bones intact and normally aligned. Soft tissues: There is a triangular 2 mm radiopaque possible foreign body just underlying the skin of the heel seen only on the lateral view and not present on the comparison. XR/XR foot LT 2V [id number] IMPRESSION: 2 mm triangular potential foreign body just underlying the skin of the heel. Correlate clinically.
--- NOTE | 2019-11-02 09:15 | PC.NURSE ---
After patient had cleansed herself from the blood, patient changed into paper scrubs, and soiled bed linens were changed as well.
[2019-11-02 09:44] LABS: Amphetamines Screen Urine Positive (Negative); Barbiturates Screen Urine Negative (Negative); Benzodiazepines Screen Urine Negative (Negative); Cocaine Screen Urine Negative (Negative); Opiate Screen Urine Negative (Negative); PCP Screen Urine Negative (Negative); THC Screen Urine Positive (Negative)
[2019-11-02 09:45] LABS: HCG Qualitative Urine. Negative (Negative); Urine Appearance Clear (CLEAR); Urine Color Yellow (Yellow); pH Urine 5 (5-7)
[2019-11-02 09:46] LABS: Add Urine Culture? No; Add Urine Microscopic? YES; Bacteria Urine TRACE; Bilirubin Urine Neg (NEGATIVE); Blood Urine Trace (Negative); Glucose Urine UA Norm (Normal); Hyaline Casts Urine 0-4; Ketones Urine 1+ (Negative); Leukocyte Esterase Urine Negative (Negative); Mucus Urine 1+; Nitrate Urine Negative (Negative); Protein Urine Neg (Negative); RBC Urine RARE /hpf (0-2); Squamous Epithelial Cell Urine RARE (0-5); Urobilinogen Urine Norm (Negative); WBC Urine RARE /hpf (0-5)
[2019-11-02 10:16] VITALS: BP 123/86; PULSE 98; RESP 18; TEMP 36.9
--- NOTE | 2019-11-02 12:04 | PC.NURSE ---
Prior to calling report on NPU or taking patient to unit, I spoke with NPU staff Ana who was asked if it were okay still for patient to wear her personal clothing after being checked by staff, she said yes. After arriving to unit and reminding staff of requesting of wearing personal clothing, staff stated they were no longer allowing patients to wear their own clothing as their policy will be changing. I informed staff that it was already verified by other staff allowing personal clothing. I informed staff that it may upset her with the inconsistency of rules after already stating the permission of personal clothing
[2019-11-02] MEDS: hyDROXYzine 25 mg Capsule 50 MG PO (13:09)
[2019-11-02 14:00] VITALS: BP 134/82; PULSE 97; RESP 18; TEMP 36.9
[2019-11-02] MEDS: nicotine 2 mg Gum BUCCAL (17:43)
[2019-11-02] MEDS: OLANZapine 5 mg ODT PO (17:48)
[2019-11-02 21:31] VITALS: BP 127/80; PULSE 61; RESP 18; TEMP 36.9; O2SAT 96
[2019-11-03 06:00] VITALS: BP 97/61; PULSE 69; RESP 17; TEMP 36.8; O2SAT 97
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
[2019-11-03 14:00] VITALS: BP 108/71; PULSE 92; RESP 18; RESP 20; TEMP 36.8; O2SAT 98
[2019-11-03] MEDS: acetaminophen 325 mg Tablet 650 MG PO (14:32)
[2019-11-03 20:21] VITALS: BP 121/80; PULSE 71; RESP 18; TEMP 36.9; O2SAT 99
[2019-11-03] MEDS: hyDROXYzine 25 mg Capsule 50 MG PO (21:25)
[2019-11-03] MEDS: trazodone 50 mg Tablet PO (21:26)
--- NOTE | 2019-11-04 03:48 | PC.NURSE ---
At HS, pt was given PRN trazodone and vistaril per request.
[2019-11-04 06:00] VITALS: BP 117/82; PULSE 97; RESP 15; TEMP 36.4; O2SAT 99
[2019-11-04] MEDS: desvenlafaxine 50 mg Tablet PO (08:51)
--- NOTE | 2019-11-04 12:14 | P.PN_ITS ---
Subjective NPU Subjective: Interval history: Elly presents today reporting that she received the first dose of Pristiq and denies having any issues. She reports that she has spoken to her significant other, and it seems that they have worked things out, to some degree. He reports that he is okay with her coming home, when she is discharged from here, which is a big weight off of her. We discussed her after care and wondering about her going to some kind of mental health and addiction treatment. She appeared to be open to that, and she is going to talk to the social workers about those issues. She was also lobbying to try to discharge at least a day early from the 96-hour hold, which would lead to her being discharged some time on , and she is hoping to go home tomorrow, kristopher peterson that she is not having any suicidal or homicidal thoughts and feels safe to discharge, and thinks that getting her back on her medication will go a long way towards her wellness. Mental Status Exam MSE Comments: This is a well-nourished, well-developed, white female, with adequate dress, grooming, and improved eye contact with bruise and swelling on the right forehead. No abnormal movements except for mild psychomotor retardation. Cooperative with exam in no acute distress. Speech was normal rate and volume. Mood described as alright; affect slightly subdued. Thought process, organized. Thought content: patient denied any suicidal or homicidal ideation, there were no delusions reported or noted, patient denied any auditory or visual hallucinations. Attention, concentration, and memory appear intact but were not formally tested. She is alert and oriented times three. Insight and judgment are improving. Impulse control limited. Vitals/I&O/Wt Last Vital Signs Temp 97.3 F L 11/04/19 20:35 Pulse 81 11/04/19 20:35 Resp 16 11/04/19 20:35 BP 127/86 11/04/19 20:35 Pulse Ox 97 11/04/19 20:35 Data NPU : 11/02/19 06:45 11/02/19 06:45 A&P Additional A&P Information (1) Acute psychosis: (2) Suicidal ideation: (3) Drug-induced psychotic disorder: (4) Polysubstance abuse: (5) PTSD (post-traumatic stress disorder): (6) Depression: This is a 39 year old, white female, with depression, anxiety, and active addiction, with a history of trauma, who presents reporting that she is open to restarting medications. Continue current medication. Continue q 15 min checks for safety encourage individual, group and milieu therapy Encourage discharge to a sober living treatment facility at the highest level of care, to which she is willing to commit. Involuntary Hold Information 96 Hour Hold: 96 Hour Involuntary Admission: No 96 Hour Hold Ending Date: 11/02/19 96 Hour Hold Ending Time: 12:01 Attestations NPU Medical Necessity Statement*: Inpatient hospitalization is medically n ecessary, and the clinically appropriate intervention at this time. We will monitor medications and titrate to affect. Likely length of stay 1-3 days. Coding Level of Care Code Acute Dba Developer for Seun Klein
[2019-11-04 14:00] VITALS: BP 138/87; PULSE 72; RESP 18; TEMP 36.4; O2SAT 98
[2019-11-04] MEDS: OLANZapine 5 mg ODT PO (15:39)
--- NOTE | 2019-11-04 15:39 | PC.NURSE ---
PRN ZYPREXA ZYDIS ZYPREXA ZYDIS 5MG PO PER PATIENT C/O AGITATION/ANXIETY. WILL CONTINUE TO MONITOR FOR MEDICATION EFFECTIVENESS.
--- NOTE | 2019-11-04 16:40 | PC.NURSE ---
PRN ZYPREXA ZYDIS FOLLOW UP MEDICATION EFFECTIVE. NO FURTHER C/O ANXIETY.
[2019-11-04] MEDS: hyDROXYzine 25 mg Capsule 50 MG PO ×2 (17:51→21:31)
--- NOTE | 2019-11-04 17:52 | PC.NURSE ---
Addendum entered by Shobha Davies LPN 11/04/19 18:40: medication effective. no further c/o anxiety. Original Note: PRN VISTARIL VISTARIL 50MG PO PER PATIENT C/O ANXIETY. WILL CONTINUE TO MONITOR FOR MEDICATION EFFECTIVENESS.
[2019-11-04 20:35] VITALS: BP 127/86; PULSE 81; RESP 16; TEMP 36.3; O2SAT 97
[2019-11-04] MEDS: trazodone 50 mg Tablet PO (21:31)
[2019-11-05 06:00] VITALS: BP 135/89; PULSE 63; RESP 14; TEMP 36.6; O2SAT 95
[2019-11-05] MEDS: desvenlafaxine 50 mg Tablet PO (08:24)
[2019-11-05] MEDS: acetaminophen 325 mg Tablet 650 MG PO ×3 (09:18→22:02)
--- NOTE | 2019-11-05 11:16 | PM.NPN ---
Subjective NPU Subjective: Interval history: Elly presents today reporting that she is doing okay. She endorsed the desire to go home sooner rather than later. She reports she has been working with her significant other to see if they can work things out. There is some confusion on whether or not they can. She is kind of reading between the lines of something he said to her, to mean that he would be okay with her coming home. We discussed the importance of not reading between lines but having straightforward conversation with people about what expectations are actually there and not just assume that things will just roll back to some happy medium. Additionally, she talked about having something else for anxiety. She had had Zyprexa and had reported that she really felt that it helped make her feel calm and stable. We discussed the fact that with it being an anti-psychotic, that it would be something that would be more of a mood stabilizer. She understood and agreed to proceed as is documented in this note. We talked about her having it as a prn if she needs it again, and then seeing if maybe it might be something reasonable to give her to help her feel more stable as she deals with trying to discontinue drinking and to deal with some of the challenges that she has had across her life. Mental Status Exam MSE Comments: This is a well-nourished, well-developed, white female, with adequate dress, grooming, and improved eye contact with bruise and swelling on the right forehead. No abnormal movements except for mild psychomotor retardation. Cooperative with exam in no acute distress. Speech was normal rate and volume. Mood described as better; affect less subdued. Thought process, organized. Thought content: patient denied any suicidal or homicidal ideation, there were no delusions reported or noted, patient denied any auditory or visual hallucinations. Attention, concentration, and memory appear intact but were not formally tested. She is alert and oriented times three. Insight and judgment are improving. Impulse control limited. Vitals/I&O/Wt Last Vital Signs Temp 97.0 F L 11/05/19 20:48 Pulse 78 11/05/19 20:48 Resp 16 11/05/19 20:48 BP 141/87 11/05/19 20:48 Pulse Ox 98 11/05/19 20:48 Data NPU : 11/02/19 06:45 11/02/19 06:45 A&P Additional A&P Information (1) Acute psychosis: (2) Suicidal ideation: (3) Drug-induced psychotic disorder: (4) Polysubstance abuse: (5) PTSD (post-traumatic stress disorder): (6) Depression: This is a 39 year old, white female, with depression, anxiety, and active addiction, with a history of trauma, who presents reporting that she is feeling better. Continue current medication. Will consider mood stabilizer to discharge with. Continue q 15 min checks for safety encourage individual, group and milieu therapy Encourage discharge to a sober living treatment facility at the highest level of care, to which she is willing to commit. Involuntary Hold Information 96 Hour Hold: 96 Hour Involuntary Admission: No 96 Hour Hold Ending Date: 11/02/19 96 Hour Hold Ending Time: 12:01 Attestations NPU Medical Necessity Statement*: Inpatient hospitalization is medically necessary, and the clinically appropriate intervention at this time. We will monitor medications and titrate to affect. Likely length of stay 1-2 days. Coding Level of Care Code Acute Fitting Room Associate for Seun Klein
[2019-11-05 14:00] VITALS: BP 125/90; PULSE 71; RESP 18; TEMP 37.1; O2SAT 97
[2019-11-05] MEDS: hyDROXYzine 25 mg Capsule 50 MG PO (16:35)
--- NOTE | 2019-11-05 16:35 | PC.NURSE ---
PRN VISTARIL 50 MG GIVEN PO PER PT C/O STATED ANXIETY. PRESSURED SPEECH NOTED, AGITATED AFFECT NOTED. WILL CONT TO MONITOR
[2019-11-05 20:48] VITALS: BP 141/87; PULSE 78; RESP 16; TEMP 36.1; O2SAT 98
[2019-11-05] MEDS: trazodone 50 mg Tablet PO (21:37)
[2019-11-05] MEDS: OLANZapine 5 mg ODT PO (21:58)
--- NOTE | 2019-11-05 23:44 | PC.NURSE ---
pt given prn meds as follows per request: zyprexa,tylenol, trazodone.
[2019-11-06 06:00] VITALS: BP 135/84; PULSE 59; RESP 17; TEMP 36.8; O2SAT 98
[2019-11-06] MEDS: desvenlafaxine 50 mg Tablet PO (08:19)
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
[2019-11-06 12:26] VITALS: BP 135/84; PULSE 59; RESP 17; TEMP 36.8; O2SAT 98
== END 2019-11-06 12:45 | disposition home or self-care (01) | DRG 885 ==
LOC: ER 08:39 → NP 10:25
PROVIDERS: Family Medicine; Admitting Provider Psychiatry & Neurology Psychiatry; PCP Nurse Practitioner; Visit Provider Psychiatry & Neurology Psychiatry
DX: F23 Brief psychotic disorder (principal); R45.851 Suicidal ideations; F19.950 Other psychoactive substance use, unspecified with psychoactive substance-induced psychotic disorder with delusions; F43.11 Post-traumatic stress disorder, acute; F33.3 Major depressive disorder, recurrent, severe with psychotic symptoms; Z91.5 Personal history of self-harm
CPT/HCPCS: 12002; 12345; 73620; 80053; 80306; 80307; 81001; 81003; 81025; 84443; 85025; 96372; 99284; J1200; J2060

== ENCOUNTER 2020-03-14 10:17 | Emergency (ER) | payer SELFPAY ==
[2020-03-14 10:23] VITALS: BP 140/107; PULSE 84; RESP 18; O2SAT 100; BMI 25.9
[2020-03-14 10:38] VITALS: BP 143/100; PULSE 82; RESP 18; O2SAT 100
[2020-03-14 10:41] VITALS: PULSE 76
--- NOTE | 2020-03-14 10:48 | PC.NURSE ---
Noted dried blood to hand and on forearm, no active bleeding now
--- NOTE | 2020-03-14 11:12 | W.ED.EXTPRO ---
HPI - Extremity Problem General: Chief complaint: Extremity Injury, Upper Stated complaint: R HAND LACERATION Time Seen by Provider: 03/14/20 10:22 Source: patient and EMS Mode of arrival: ambulatory Limitations: no limitations History of Present Illness: HPI Narrative: 39-year-old female patient presents to the emergency department via EMS due to left wrist laceration she sustained. She reports was in the shower, slipped, states glass shower door broke causing her to sustain laceration to the right wrist. Bleeding controlled upon exam. She denies pain to the right wrist, states possible glass left in the wound Onset (ago): hour(s) (1) Location: right and upper extremity Severity scale (1-10): 3 Associated symptoms: Reports no associated symptoms; Deny chest pain, fever(s) or rash Review of Systems General: Reports: 10 or more systems reviewed and unremarkable except in HPI and below Const: Denies: fever(s), chills or diaphoresis Eyes: Denies: change in vision, blurry vision or eye redness ENMT: Denies: throat pain, hoarseness, dental pain, disequilibrium, nasal discharge or nasal congestion Card: Denies: chest pain, palpitations or irregular heart rhythm Resp: Denies: dyspnea, productive cough, non-productive cough or wheezing GI: Denies: abdominal pain, nausea or vomiting : Denies: difficulty voiding or dysuria Musc: Denies: neck pain, back pain, extremity swelling, joint pain or joint stiffness Skin/Breast: Reports: skin tenderness and other (rt wrist laceration); Denies: rash or pruritus Neuro: Denies: headache(s), weakness in extremities, lack of coordination, difficulty walking, confusion, behavioral changes, Slurred speech present or seizure-like activity Psych: Denies: anxiety or depression Cooper/Lymph: Denies: easy bruising PFSH ED PFSH: Medical History Amphetamine substance use disorder, moderate, in early remission last use 11/02/19 Anxiety Cannabis dependence with current use daily use reported PTSD (post-traumatic stress disorder) Physical Exam Const: COMMON NORMALS: no acute distress, patient oriented x3, healthy appearing and alert GENERAL APPEARANCE: cooperative, comfortable and well hydrated HENMT: COMMON NORMALS: normocephalic, Normal external nose present and moist oral mucous membranes HEAD & SCALP: normocephalic NOSE: Normal external nose present Eye: COMMON NORMALS: Equal, round and reactive pupils present and EOMs intact bilaterally GENERAL EYE: appearance normal, both eyes and all related structures PUPIL: Yes Equal, round and reactive pupils present Neck/C-Spine: COMMON NORMALS: full ROM and no lymphadenopathy GENERAL: Yes normal visual inspection and Yes trachea midline CERVICAL SPINE: Yes cervical ROM normal Lymph: LYMPHATIC: no lymphadenopathy noted Chest: COMMONS NORMALS: normal inspection of the chest Resp: COMMON NORMALS: normal respiratory effort and clear to auscultation bilaterally AUSCULTATION: clear to auscultation bilaterally Cardio: COMMON NORMALS: regular rhythm, S1 normal heart sound present and S2 normal heart sound present RHYTHM: regular rhythm HEART SOUNDS: S1 normal heart sound present and S2 normal heart sound present GI: COMMON NORMALS: Soft to palpation and non-tender INSPECTION: Yes normal to inspection PALPATION: Yes Soft to palpation : COMMON NORMALS: Yes no CVA tenderness BLADDER/KIDNEY EXAM: Yes no CVA tenderness Back/Pelvis: COMMON NORMALS: no CVA tenderness and thoracic and lumbar spine normal to inspection Extremity: COMMON NORMALS: normal to inspection, full ROM, capillary refill normal and no pedal edema GENERAL: Yes normal exam except as noted OTHER: full ROM of the rt wrist, distal exam n/v intact, negative tendon deficit noted Neuro: COMMON NORMALS: patient oriented x3 and no focal motor deficits SENSORIUM/ORIENTATION: Yes alert Psych: COMMON NORMALS: mental status grossly normal, Normal thought process present and cooperative ACTIVITY/MOTOR BEHAVIOR: Yes appropriate eye contact THOUGHT PROCESS: Normal thought process present Skin: COMMON NORMALS: no rashes or lesions noted and turgor normal GENERAL SKIN EXAM: no rashes or lesions noted, elasticity normal and turgor normal TRAUMA: laceration irregular, foreign body present, involves subcutaneous tissue, motor nerve function intact and sensation intact NAILS: normal Procedures Laceration Laceration 1: Site: upper extremity (rt wrist, dorsal, distal) Side (If applicable): right Size (cm): 3 Description: linear, irregular and contaminated Depth: simple, single layer Local Anesthetic: lidocaine 1% Amount of anesthesia used (mL): 5 Pre-repair: wound explored, irrigated extensively, deep structures intact, extensive debridement (glass removed) and wound margins revised Skin layer closed with: nylon Size (cm): 5-0 Number of sutures: 7 Technique: simple, interrupted Course Vital Signs: Vital signs: Vital Signs Temperature 98.7 F 03/14/20 11:39 Pulse Rate 75 03/14/20 11:39 Respiratory Rate 18 03/14/20 11:39 Blood Pressure 133/94 03/14/20 11:39 Pulse Oximetry 99 03/14/20 11:39 Discharge Plan Discharge Condition: Stable Prescriptions: No Action desvenlafaxine succinate [Pristiq] 100 mg tablet extended release 24 hr 100 mg PO .morning Qty: 30 RF: 3 trazodone 50 mg tablet 50 mg PO BEDTIME PRN (Reason: Sleep) 30 Days Qty: 30 RF: 3 olanzapine [Zyprexa] 5 mg tablet 5 mg PO BID PRN (Reason: anxiety/agitation) Qty: 60 RF: 3 naproxen sodium [Aleve] 220 mg Tablet 440 mg PO DAILY PRN (Reason: Pain) RF: 0 Discharge Orders: Discharge ED (Routine); Ordered 03/14/20 Ordered By: Natividad Mckeon Referrals: Silva Ponce FNP [Primary Care Provider] - Discharge Diet: Usual diet Discharge Activity: Limit activity as instructed Patient Instructions: Diphtheria/Acellular Pertussis/Tetanus Booster Vaccine (Tdap) (Injection), Suture Care (ED), Laceration (ED) Activity Restrictions/Additional Instructions: Return to the emergency department if you develop redness or drainage, red streaking from the laceration site Follow-up with your primary care provider in 7 to 10 days for suture removal, if unable to do so, you may go to urgent care for suture removal Do not submerge the sutures in water, may wash gently with soap and water and pat dry May apply triple antibiotic ointment to the wound if dryness occurs. May cover if wound may become contaminated Limit mobility of the right wrist until sutures are removed Coding Level of Care Code ED Washing Machine Striper for Seun Fwadonis Exam Comprehensive
[2020-03-14] MEDS: tetanus-dipt-pertussis 0.5 mL SDV IM (11:31)
[2020-03-14 11:39] VITALS: BP 133/94; PULSE 75; RESP 18; TEMP 37.1; O2SAT 99
== END 2020-03-14 11:41 ==
PROVIDERS: Emergency Provider Nurse Practitioner Family; PCP Nurse Practitioner
DX: S61.511A Laceration without foreign body of right wrist, initial encounter (principal); W01.110A Fall on same level from slipping, tripping and stumbling with subsequent striking against sharp glass, initial encounter; Z23 Encounter for immunization
CPT/HCPCS: 12002; 12345; 90471; 90715; 99281; 99282

== ENCOUNTER 2021-06-16 21:45 | Emergency (ER) | payer MEDICAID, SELFPAY ==
[2021-06-16 21:54] VITALS: BP 160/94; PULSE 70; RESP 18; TEMP 36.4; O2SAT 98; BMI 26.2
--- NOTE | 2021-06-16 21:54 | ECG_ITS ---
[facility] Test Date: 2021-06-16 Pat Name: Elly Rosado Department: Room: Gender: Female Vehicle Trimmer: : 1980 Requested By: Juan Meza Order Number: [id number] Leonor MD: Nick Walls M.D. Measurements Intervals [place] Rate: 64 P: 46 WY: 121 QRS: 64 QRSD: 84 T: 57 QT: 401 QTc: 416 Interpretive Statements SINUS RHYTHM Compared to ECG 06/16/2021 21:59:21 Short [place] interval no longer present Electronically Signed On 06-19-2021 15:50:15 CDT by Nick Walls M.D. [email or web address] grossman burn [id number]
--- NOTE | 2021-06-16 21:54 | XRR_ITS ---
PROCEDURE INFORMATION: Exam: XR Chest Exam date and time: 06/16/2021 9:54 PM Age: 40 years old Clinical indication: Pain; Angina pectoris; Additional info: Cp TECHNIQUE: Imaging protocol: XR of the chest. Views: 1 view. COMPARISON: CR Chest 1 [place] [id number] 12/05/2018 2:15 PM FINDINGS: Lungs: Unremarkable. No consolidation. Pleural spaces: Unremarkable. No pleural effusion. No pneumothorax. Heart/Mediastinum: Unremarkable. No cardiomegaly. Bones/joints: Unremarkable. XR/XR chest 1V portable [id number] IMPRESSION: No acute findings.
--- NOTE | 2021-06-16 22:14 | W.ED.CHESTPA ---
HPI - Chest Pain General: Chief Complaint: Chest Pain Stated Complaint: Chest Pain Time Seen by Provider: 06/16/21 22:03 Source: patient Mode of arrival: ambulatory Limitations: no limitations History of Present Illness: 40-[facility] states that she has been having intermittent chest pains also upper abdominal pain over the last 1 to 2 hours. Patient states she has had pain is been moving all over she states has been on the left chest right chest and her jaw and her abdomen. States she has had some nausea denies any shortness of breath. Patient denies any worsening proving factors. She appears very anxious here she has no history of heart disease is a former IV drug user. Associated symptoms: Reports abdominal pain; Deny dyspnea or fever(s) Review of Systems Const: Denies: fever(s), chills, body aches or change in appetite Eyes: Denies: blurry vision or eye discomfort ENMT: Denies: throat pain or dental pain Card: Reports: chest pain Resp: Denies: dyspnea GI: Reports: abdominal pain : Denies: dysuria Musc: Denies: neck pain or back pain Skin/Breast: Denies: rash Neuro: Denies: headache(s) Psych: Denies: depression Cooper/Lymph: Denies: easy bruising All/Imm: Denies: urticaria PFSH ED PFSH: Medical History Anxiety Cannabis dependence, uncomplicated Not yet in remission last use 06/03/21 Nicotine dependence, cigarettes, uncomplicated Other stimulant dependence, uncomplicated Not yet in remission last use of methamphetamines 06/02/21 Psychiatric care PTSD (post-traumatic stress disorder) Social History (Updated 06/16/21 @ 22:15 by Juan Meza MD) Smoking and tobacco status: current every day smoker Physical Exam Const: COMMON NORMALS: no acute distress, patient oriented x3 and healthy appearing HENMT: COMMON NORMALS: normocephalic and atraumatic HEAD & SCALP: normocephalic and atraumatic Eye: COMMON NORMALS: Equal, round and reactive pupils present and EOMs intact bilaterally PUPIL: Yes Equal, round and reactive pupils present Neck/C-Spine: COMMON NORMALS: full ROM and supple Chest: COMMONS NORMALS: normal inspection of the chest and normal palpation of entire chest wall Resp: COMMON NORMALS: normal respiratory effort, No retractions, No use of accessory muscles and clear to auscultation bilaterally AUSCULTATION: clear to auscultation bilaterally Cardio: COMMON NORMALS: regular rate, regular rhythm and No murmurs present (Cardio) RATE: regular rate RHYTHM: regular rhythm GI: COMMON NORMALS: Normal to inspection, nondistended, normoactive bowel sounds present, Soft to palpation, non-tender and no masses PALPATION: Yes Soft to palpation Extremity: COMMON NORMALS: normal to inspection and full ROM Neuro: COMMON NORMALS: patient oriented x3, moves all extremities and no focal motor deficits Psych: COMMON NORMALS: mental status grossly normal, Normal thought process present and cooperative THOUGHT PROCESS: Normal thought process present Skin: COMMON NORMALS: no rashes or lesions noted and no wounds GENERAL SKIN EXAM: no rashes or lesions noted Course Vital Signs: Vital signs: Vital Signs Temperature 97.6 F 06/16/21 21:54 Pulse Rate 70 06/16/21 21:54 Respiratory Rate 16 06/16/21 22:22 Blood Pressure 160/94 06/16/21 21:54 Pulse Oximetry 98 06/16/21 21:54 MDM - Chest Pain Medical Decision Making 40-year-old female who presents here with chest pains atypical in nature initial repeat troponins here are normal she has been well-appearing here pain here is been relieved she stable for discharge back to [facility] return if worsening. Lab Data : 06/16/21 22:12 06/16/21 22:12 Radiology Impressions Chest X-Ray 06/16/21 21:54 IMPRESSION: No acute findings. Laboratory Results WBC 9.9 10^3/uL (4.0-10.0) 06/16/21 22:12 RBC 4.62 10^6/uL (4.1-5.3) 06/16/21 22:12 Hgb 13.6 g/dL (11.5-15.3) 06/16/21 22:12 Hct 42.0 % (37.0-47.0) 06/16/21 22:12 MCV 90.9 fl (81-99) 06/16/21 22:12 MCH 29.4 pg (28.0-34.0) 06/16/21 22:12 MCHC 32.4 g/dL (30.0-36.0) 06/16/21 22:12 RDW 12.7 % (12.1-15.1) 06/16/21 22:12 Plt Count 357 10^3/cmm (130-400) 06/16/21 22:12 MPV 9.5 fL (7.4-10.4) 06/16/21 22:12 Neut % (Auto) 52.9 % 06/16/21:12 Lymph % (Auto) 37.2 % 06/16/21 22:12 Faulk % (Auto) 6.7 % 06/16/21 22:12 Eos % (Auto) 1.9 % 06/16/21 22:12 Baso % (Auto) 0.7 % 06/16/21: Neut # (Auto) 5.24 10^3/uL (1.8-7.7) 06/16/21:12 Lymph # (Auto) 3.7 10^3/uL (0.8-4.8) 06/16/21 22:12 Faulk # (Auto) 0.7 10^3/uL (0.2-0.9) 06/16/21 22:12 Eos # (Auto) 0.2 10^3/uL (0.0-0.8) 06/16/21:12 Baso # (Auto) 0.1 10^3/uL (0.0-0.1) 06/16/21:12 Nucleated RBC % (auto) 0 % 06/16/21: Nucleated RBCs # 0.0 /100WBC 06/16/21 22:12 Sodium 137 mmol/L (136-145) 06/16/21 22:12 Potassium 4.0 mmol/L (3.5-5.1) 06/16/21 22:12 Chloride 101 mmol/L (98-107) 06/16/21 22:12 Carbon Dioxide 24 mmol/L (22-29) 06/16/21 22:12 Anion Gap 16.0 (5-19) 06/16/21 22:12 BUN 18 mg/dL (6-20) 06/16/21 22:12 Creatinine 0.9 mg/dL (0.5-0.9) 06/16/21 22:12 GFR Calculation 68.7 mL/min (90-130) L 06/16/21 22:12 Glucose 128 mg/dL (65-115) H 06/16/21 22:12 Calculated Osmolality 288 mOsm/kg (285-295) 06/16/21 22:12 Calcium 10.1 mg/dL (8.5-10.5) 06/16/21 22:12 Total Bilirubin 0.2 mg/dL (0.15-1.2) 06/16/21 22:12 AST 32 U/L (0-32) 06/16/21 22:12 ALT 67 U/L (0-33) H 06/16/21 22:12 Alkaline Phosphatase 86 IU/L (35-105) 06/16/21 22:12 Troponin T Baseline 7 ng/L (0-10) 06/16/21 22:12 Troponin T 120 Minute 6.12 ng/L (0-10) 06/16/21 23:48 Total Protein 7.3 g/dL (6.6-8.7) 06/16/21 22:12 Albumin 4.3 g/dL (3.5-5.2) 06/16/21 22:12 Globulin 3.0 g/dL (1.3-4.6) 06/16/21 22:12 Lipase 36 U/L (13-60) 06/16/21 22:12 EKG Data EKG 1: I personally reviewed and interpreted this EKG as follows: EKG interpretation date: 06/16/21 EKG interpretation time: 21:59 Interpretation: nsr hr [address] or t wave abnormalities qrs 99 qtc 421 EKG 2: I personally reviewed and interpreted this EKG as follows: EKG interpretation date: 06/16/21 EKG interpretation time: 23:44 Interpretation: nsr hr [address] or t wave abnormalities qrs 84 qtc 411 Discharge Plan Discharge Patient Disposition: Home Clinical Impression: Chest pain Qualifiers: Chest pain type: unspecified Qualified Code(s): R07.9 - Chest pain, unspecified Prescriptions: No Action olanzapine [Zyprexa] 5 mg tablet 5 mg PO BID Qty: 60 3RF Rx Instructions: Take one tablet twice per day propranolol 20 mg tablet 20 mg PO BID Qty: 60 3RF Rx Instructions: Take one tablet twice per day venlafaxine [Effexor XR] 37.5 mg capsule,extended release 24hr 37.5 mg PO .morning Qty: 30 3RF Rx Instructions: Take one capsule every morning trazodone 50 mg tablet 50 mg PO BEDTIME PRN (Reason: insomnia) Qty: 30 3RF Rx Instructions: May take half to one tablet at bedtime as needed for sleep Discharge Orders: Discharge ED (Routine); Ordered 06/17/21 Ordered By: Juan Meza Discharge Diet: Advance as tolerated Discharge Activity: Resume usual activity Patient Instructions: Chest Pain (ED) Coding Level of Care Code ED Paperboard Boxes Estimator for Seun Fwd Exam Comprehensive
[2021-06-16 22:22] VITALS: RESP 16
[2021-06-16] MEDS: ondansetron 2 mg/ML SDV 2 mL 4 MG IVP (22:22)
[2021-06-16] MEDS: morphine 4 mg/mL SDV 1 mL IVP (22:22)
[2021-06-16 22:23] LABS: Basophils # 0.1 10^3/uL (0.0-0.1); Basophils % 0.7 %; Eosinophils # 0.2 10^3/uL (0.0-0.8); Eosinophils % 1.9 %; Hemoglobin 13.6 g/dL (11.5-15.3); Lymphocytes # 3.7 10^3/uL (0.8-4.8); Lymphocytes % 37.2 %; Mean Corpuscular HGB Conc 32.4 g/dL (30.0-36.0); Mean Corpuscular Hemoglobin 29.4 pg (28.0-34.0); Mean Corpuscular Volume 90.9 fl (81-99); Mean Platelet Volume 9.5 fL (7.4-10.4); Monocytes # 0.7 10^3/uL (0.2-0.9); Monocytes % 6.7 %; Neutrophils # 5.24 10^3/uL (1.8-7.7); Neutrophils % 52.9 %; Nucleated Red Blood Cells % 0 %; Platelet Count 357 10^3/cmm (130-400); Red Blood Count 4.62 10^6/uL (4.1-5.3); Red Cell Distribution Width 12.7 % (12.1-15.1); White Blood Count 9.9 10^3/uL (4.0-10.0)
[2021-06-16 22:40] LABS: Alanine Aminotransferase 67 U/L (0-33); Albumin Level 4.3 g/dL (3.5-5.2); Alkaline Phosphatase 86 IU/L (35-105); Aspartate Amino Transferase 32 U/L (0-32); Blood Urea Nitrogen 18 mg/dL (6-20); Calcium 10.1 mg/dL (8.5-10.5); Carbon Dioxide 24 mmol/L (22-29); Chloride 101 mmol/L (98-107); Glomerular Filtration Rate 68.7 mL/min (90-130); Glucose 128 mg/dL (65-115); Lipase 36 U/L (13-60); Osmolality Calculated 288 mOsm/kg (285-295); Sodium 137 mmol/L (136-145); Total Bilirubin 0.2 mg/dL (0.15-1.2); Total Protein 7.3 g/dL (6.6-8.7)
[2021-06-16 22:41] LABS: Troponin(5th) Baseline 7 ng/L (0-10)
--- NOTE | 2021-06-16 23:54 | ECG_ITS ---
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 Measurements Intervals [place] Rate: 63 P: 55 NV: 115 QRS: 66 QRSD: 99 T: 61 QT: 413 QTc: 426 Interpretive Statements SINUS RHYTHM WITH SHORT NV INTERVAL Compared to ECG 10/16/2019 20:06:47 Short NV interval now present Electronically Signed On 06-19-2021 15:57:46 CDT by Nick Walls M.D. [id number]
[2021-06-17 00:12] LABS: Troponin 5 2HR 6.12 ng/L (0-10)
[2021-06-17 00:18] LABS: Troponin 5 2HR Delta -0.88 ABS# (0-10)
== END 2021-06-17 00:20 | disposition home or self-care (01) ==
PROVIDERS: Emergency Provider Emergency Medicine
DX: R07.9 Chest pain, unspecified (principal); F17.200 Nicotine dependence, unspecified, uncomplicated; Z87.898 Personal history of other specified conditions; Z72.89 Other problems related to lifestyle
CPT/HCPCS: 36415; 71045; 80053; 83690; 84484; 85025; 93005; 96374; 96375; 99283; J2270; J2405

== ENCOUNTER → 2021-06-22 09:41 | Outpatient (BNVA) | payer OTHER, SELFPAY | PROVIDERS: Visit Provider Nurse Practitioner Psychiatric/Mental Health | DX: F15.20 Other stimulant dependence, uncomplicated (principal); F12.20 Cannabis dependence, uncomplicated; F33.3 Major depressive disorder, recurrent, severe with psychotic symptoms; F43.10 Post-traumatic stress disorder, unspecified; F17.210 Nicotine dependence, cigarettes, uncomplicated; Z79.899 Other long term (current) drug therapy | CPT/HCPCS: 80061; 83036; 84146 ==

== ENCOUNTER 2021-08-08 14:47 | Inpatient (IN) | payer MEDICAID, SELFPAY ==
[2021-08-08 14:52] VITALS: BP 144/92; PULSE 93; RESP 18; TEMP 36.5; O2SAT 98; BMI 28.2
[2021-08-08 15:23] LABS: Basophils % 0.7 %; Eosinophils # 0.1 10^3/uL (0.0-0.8); Eosinophils % 1.7 %; Hematocrit 42.8 % (37.0-47.0); Hemoglobin 14.4 g/dL (11.5-15.3); Lymphocytes # 2.1 10^3/uL (0.8-4.8); Mean Corpuscular HGB Conc 33.6 g/dL (30.0-36.0); Mean Corpuscular Hemoglobin 29.5 pg (28.0-34.0); Mean Corpuscular Volume 87.7 fl (81-99); Mean Platelet Volume 9.4 fL (7.4-10.4); Monocytes # 0.4 10^3/uL (0.2-0.9); Monocytes % 7.9 %; Neutrophils # 2.73 10^3/uL (1.8-7.7); Neutrophils % 50.3 %; Nucleated Red Blood Cells % 0 %; Platelet Count 325 10^3/cmm (130-400); Red Blood Count 4.88 10^6/uL (4.1-5.3); Red Cell Distribution Width 13.2 % (12.1-15.1); White Blood Count 5.4 10^3/uL (4.0-10.0)
--- NOTE | 2021-08-08 15:35 | W.ED.PSYCHS ---
Documented by User: ZACKARY Juarez 08/08/21 15:53 HPI - Psych General: Chief Complaint: Psychiatric Symptoms Stated Complaint: Psych Eval Time Seen by Provider: 08/08/21 15:00 Source: patient Mode of arrival: ambulatory Limitations: no limitations History of Present Illness: Patient is a 40-year-old female presents to ED today with complaint of severe depression and suicidal ideations. Patient tells me she feels utterly hopeless. Patient tells me she has no friends or family or support system. She tells me she is currently homeless. 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 Patient tells me she has a plan to overdose on her medications in a suicide attempt. MD complaint: suicidal ideation and feels depressed Onset (ago): day(s) Duration: constant History of same: Yes Exacerbating factors: drug use Context: recent drug abuse and significant life stressor Associated psychiatric symptoms: depression and suicidal ideation Associated symptoms: Reports depression and suicidal ideation; Deny auditory hallucinations, visual hallucinations or homicidal ideation Treatments prior to arrival: none If self harm: admits thoughts of self harm, has plan and has acted on plan (states she took more than prescribed of her medications a few days ago in SI attempt) Review of Systems Const: Denies: fever(s) or chills Card: Denies: chest pain, palpitations, lightheadedness or syncope Resp: Denies: dyspnea GI: Denies: abdominal pain, nausea, vomiting or diarrhea Skin/Breast: Denies: rash Neuro: Denies: headache(s) Psych: Reports: anxiety, depression, hopelessness and suicidal ideation; Denies: visual hallucinations, auditory hallucinations or homicidal ideation [facility] ED PFSH: Medical History Anxiety Cannabis dependence, uncomplicated Not yet in remission last use 06/03/21 Nicotine dependence, cigarettes, uncomplicated Other stimulant dependence, uncomplicated Not yet in remission last use of methamphetamines 06/02/21 Psychiatric care PTSD (post-traumatic stress disorder) Social History Smoking and tobacco status: current every day smoker Physical Exam Const: COMMON NORMALS: no acute distress, patient oriented x3, no limitations, alert and well nourished GENERAL APPEARANCE: cooperative ORIENTATION/CONSCIOUSNESS: Yes awake, Yes oriented to person, Yes oriented to place and Yes oriented to time HENMT: COMMON NORMALS: normocephalic and atraumatic HEAD & SCALP: normocephalic and atraumatic Resp: COMMON NORMALS: normal respiratory effort and clear to auscultation bilaterally AUSCULTATION: clear to auscultation bilaterally Cardio: COMMON NORMALS: regular rate and regular rhythm RATE: regular rate RHYTHM: regular rhythm Neuro: COMMON NORMALS: patient oriented x3 SENSORIUM/ORIENTATION: Yes alert, Yes oriented to person, Yes oriented to place and Yes oriented to time Psych: COMMON NORMALS: mental status grossly normal, Normal thought process present, cooperative, speech normal, activity/motor behavior normal, denies hallucinations and denies homicidal ideation APPEARANCE: Yes grossly normal ATTITUDE: Yes calm ACTIVITY/MOTOR BEHAVIOR: Yes appropriate eye contact and No psychomotor agitation SPEECH: Yes normal speech MOOD & AFFECT: Yes depressed mood, Yes sad and Yes tearful THOUGHT PROCESS: Normal thought process present THOUGHT CONTENT: Yes Normal thought content present ATTENTION/CONCENTRATION: Yes attention grossly intact and Yes concentration grossly intact MEMORY/COGNITION: Yes memory grossly intact and Yes cognition grossly intact INSIGHT: Good insight present (Psych) JUDGEMENT: Good judgement present (Psych) Course Consultations: Consultation #1: Dr. Arthur-accepts to NPU once cleared medically Vital Signs: Vital signs: Vital Signs Temperature 97.7 F 08/08/21 14:52 Pulse Rate 93 08/08/21 14:52 Respiratory Rate 18 08/08/21 14:52 Blood Pressure 144/92 08/08/21 14:52 Pulse Oximetry 98 08/08/21 14:52 [facility] - Psych Medical Decision Making Patient will be admitted to NPU for SI to Dr. Arthur. Dr. Shi will place admit orders. Lab Data : 08/08/21 15:15 08/08/21 15:15 Laboratory Results WBC 5.4 10^3/uL (4.0-10.0) 08/08/21 15:15 RBC 4.88 10^6/uL (4.1-5.3) 08/08/21 15:15 Hgb 14.4 g/dL (11.5-15.3) 08/08/21 15:15 Hct 42.8 % (37.0-47.0) 08/08/21 15:15 MCV 87.7 fl (81-99) 08/08/21 15:15 MCH 29.5 pg (28.0-34.0) 08/08/21 15:15 MCHC 33.6 g/dL (30.0-36.0) 08/08/21 15:15 RDW 13.2 % (12.1-15.1) 08/08/21 15:15 Plt Count 325 10^3/cmm (130-400) 08/08/21 15:15 MPV 9.4 fL (7.4-10.4) 08/08/21 15:15 Neut % (Auto) 50.3 % 08/08/21 15:15 Lymph % (Auto) 39.0 % 08/08/21 15:15 Borden % (Auto) 7.9 % 08/08/21 15:15 Eos % (Auto) 1.7 % 08/08/21 15:15 Baso % (Auto) 0.7 % 08/08/21 15:15 Neut # (Auto) 2.73 10^3/uL (1.8-7.7) 08/08/21 15:15 Lymph # (Auto) 2.1 10^3/uL (0.8-4.8) 08/08/21 15:15 Borden # (Auto) 0.4 10^3/uL (0.2-0.9) 08/08/21 15:15 Eos # (Auto) 0.1 10^3/uL (0.0-0.8) 08/08/21 15:15 Baso # (Auto) 0.0 10^3/uL (0.0-0.1) 08/08/21 15:15 Nucleated RBC % (auto) 0 % 08/08/21 15:15 Nucleated RBCs # 0.0 /100WBC 08/08/21 15:15 Sodium 139 mmol/L (136-145) 08/08/21 15:15 Potassium 4.1 mmol/L (3.5-5.1) 08/08/21 15:15 Chloride 105 mmol/L (98-107) 08/08/21 15:15 Carbon Dioxide 23 mmol/L (22-29) 08/08/21 15:15 Anion Gap 15.1 (5-19) 08/08/21 15:15 BUN 15 mg/dL (6-20) 08/08/21 15:15 Creatinine 0.7 mg/dL (0.5-0.9) 08/08/21 15:15 GFR Calculation 91.8 mL/min (90-130) 08/08/21 15:15 Glucose 81 mg/dL (65-115) 08/08/21 15:15 Calculated Osmolality 288 mOsm/kg (285-295) 08/08/21 15:15 Calcium 9.6 mg/dL (8.5-10.5) 08/08/21 15:15 Total Bilirubin 0.3 mg/dL (0.15-1.2) 08/08/21 15:15 AST 11 U/L (0-32) 08/08/21 15:15 ALT 10 U/L (0-33) 08/08/21 15:15 Alkaline Phosphatase 71 IU/L (35-105) 08/08/21 15:15 Total Protein 7.3 g/dL (6.6-8.7) 08/08/21 15:15 Albumin 4.0 g/dL (3.5-5.2) 08/08/21 15:15 Globulin 3.3 g/dL (1.3-4.6) 08/08/21 15:15 HCG, Qual Negative (Negative) 08/08/21 15:15 Salicylates < 0.3 mg/dL (3-10) L 08/08/21 15:15 Acetaminophen < 5.0 ug/mL (10-30) L 08/08/21 15:15 Ethyl Alcohol < 10 mg/dL (0-10) 08/08/21 15:15 Discharge Plan Discharge Patient Disposition: Admitted As Inpatient Clinical Impression: Suicidal ideation Condition: Stable Sign Out Sign Out Data: Patient Sign Out occurred on 08/08/21 at 15:53. Patient's care was discussed, and care was transferred from to Omar Shi DO. Coding Level of Care Code ED Tow Feeder for Chg Fwd Exam Detailed Documented by User: Omar Shi DO 08/08/21 15:57 HPI - Psych General: Chief Complaint: Psychiatric Symptoms Stated Complaint: Psych Eval Time Seen by Provider: 08/08/21 15:00 [facility] ED PFSH: Medical History Anxiety Cannabis dependence, uncomplicated Not yet in remission last use 06/03/21 Nicotine dependence, cigarettes, uncomplicated Other stimulant dependence, uncomplicated Not yet in remission last use of methamphetamines 06/02/21 Psychiatric care PTSD (post-traumatic stress disorder) Social History Smoking and tobacco status: current every day smoker Course Vital Signs: Vital signs: Vital Signs Temperature 97.7 F 08/08/21 14:52 Pulse Rate 93 08/08/21 14:52 Respiratory Rate 18 08/08/21 14:52 Blood Pressure 144/92 08/08/21 14:52 Pulse Oximetry 98 08/08/21 14:52 MDM - Psych Medical Decision Making Patient will be admitted to NPU for SI to Dr. Arthur. Dr. Shi will place admit orders. Midlevel review. Agree with assessment and plan orders written Kristie Dove is discussed with Dr. Arthur. Medical Records I reviewed the patient's medical records. Lab Data I reviewed the patient's lab results. : 08/08/21 15:15 08/08/21 15:15 Laboratory Results WBC 5.4 10^3/uL (4.0-10.0) 08/08/21 15:15 RBC 4.88 10^6/uL (4.1-5.3) 08/08/21 15:15 Hgb 14.4 g/dL (11.5-15.3) 08/08/21 15:15 Hct 42.8 % (37.0-47.0) 08/08/21 15:15 MCV 87.7 fl (81-99) 08/08/21 15:15 MCH 29.5 pg (28.0-34.0) 08/08/21 15:15 MCHC 33.6 g/dL (30.0-36.0) 08/08/21 15:15 RDW 13.2 % (12.1-15.1) 08/08/21 15:15 Plt Count 325 10^3/cmm (130-400) 08/08/21 15:15 MPV 9.4 fL (7.4-10.4) 08/08/21 15:15 Neut % (Auto) 50.3 % 08/08/21 15:15 Lymph % (Auto) 39.0 % 08/08/21 15:15 Borden % (Auto) 7.9 % 08/08/21 15:15 Eos % (Auto) 1.7 % 08/08/21 15:15 Baso % (Auto) 0.7 % 08/08/21 15:15 Neut # (Auto) 2.73 10^3/uL (1.8-7.7) 08/08/21 15:15 Lymph # (Auto) 2.1 10^3/uL (0.8-4.8) 08/08/21 15:15 Borden # (Auto) 0.4 10^3/uL (0.2-0.9) 08/08/21 15:15 Eos # (Auto) 0.1 10^3/uL (0.0-0.8) 08/08/21 15:15 Baso # (Auto) 0.0 10^3/uL (0.0-0.1) 08/08/21 15:15 Nucleated RBC % (auto) 0 % 08/08/21 15:15 Nucleated RBCs # 0.0 /100WBC 08/08/21 15:15 Sodium 139 mmol/L (136-145) 08/08/21 15:15 Potassium 4.1 mmol/L (3.5-5.1) 08/08/21 15:15 Chloride 105 mmol/L (98-107) 08/08/21 15:15 Carbon Dioxide 23 mmol/L (22-29) 08/08/21 15:15 Anion Gap 15.1 (5-19) 08/08/21 15:15 BUN 15 mg/dL (6-20) 08/08/21 15:15 Creatinine 0.7 mg/dL (0.5-0.9) 08/08/21 15:15 GFR Calculation 91.8 mL/min (90-130) 08/08/21 15:15 Glucose 81 mg/dL (65-115) 08/08/21 15:15 Calculated Osmolality 288 mOsm/kg (285-295) 08/08/21 15:15 Calcium 9.6 mg/dL (8.5-10.5) 08/08/21 15:15 Total Bilirubin 0.3 mg/dL (0.15-1.2) 08/08/21 15:15 AST 11 U/L (0-32) 08/08/21 15:15 ALT 10 U/L (0-33) 08/08/21 15:15 Alkaline Phosphatase 71 IU/L (35-105) 08/08/21 15:15 Total Protein 7.3 g/dL (6.6-8.7) 08/08/21 15:15 Albumin 4.0 g/dL (3.5-5.2) 08/08/21 15:15 Globulin 3.3 g/dL (1.3-4.6) 08/08/21 15:15 HCG, Qual Negative (Negative) 08/08/21 15:15 Salicylates < 0.3 mg/dL (3-10) L 08/08/21 15:15 Acetaminophen < 5.0 ug/mL (10-30) L 08/08/21 15:15 Ethyl Alcohol < 10 mg/dL (0-10) 08/08/21 15:15 Discharge Plan Discharge Patient Disposition: Admitted As Inpatient Clinical Impression: Suicidal ideation Condition: Stable Sign Out Sign Out Data: Patient Sign Out occurred on 08/08/21 at 15:53. Patient's care was discussed, and care was transferred from to Omar Shi DO. Coding Level of Care Code ED Tow Feeder for Seun Fwd Exam Detailed
[2021-08-08 15:42] LABS: Alanine Aminotransferase 10 U/L (0-33); Alkaline Phosphatase 71 IU/L (35-105); Anion Gap 15.1 (5-19); Aspartate Amino Transferase 11 U/L (0-32); Blood Urea Nitrogen 15 mg/dL (6-20); Calcium 9.6 mg/dL (8.5-10.5); Carbon Dioxide 23 mmol/L (22-29); Chloride 105 mmol/L (98-107); Globulin 3.3 g/dL (1.3-4.6); Glomerular Filtration Rate 91.8 mL/min (90-130); Glucose 81 mg/dL (65-115); Osmolality Calculated 288 mOsm/kg (285-295); Potassium 4.1 mmol/L (3.5-5.1); Sodium 139 mmol/L (136-145); Total Bilirubin 0.3 mg/dL (0.15-1.2); Total Protein 7.3 g/dL (6.6-8.7)
[2021-08-08 15:45] LABS: Acetaminophen < 5.0 ug/mL (10-30); Alcohol Level < 10 mg/dL (0-10); Salicylate < 0.3 mg/dL (3-10)
[2021-08-08 15:46] LABS: HCG, Serum Qual Negative (Negative)
[2021-08-08 16:35] VITALS: BP 143/93; PULSE 61; RESP 15; TEMP 36.9; O2SAT 100
[2021-08-08 17:16] VITALS: BP 123/92; PULSE 69; RESP 18; TEMP 36.6; O2SAT 99
[2021-08-08 18:01] LABS: Amphetamines Screen Urine Negative (Negative); Barbiturates Screen Urine Positive (Negative); Benzodiazepines Screen Urine Negative (Negative); Cocaine Screen Urine Negative (Negative); Opiate Screen Urine Negative (Negative); PCP Screen Urine Negative (Negative); THC Screen Urine Positive (Negative)
[2021-08-08] MEDS: trazodone 50 mg Tablet PO (21:28)
[2021-08-08] MEDS: propranolol 20 mg Tablet PO (21:28)
[2021-08-08 22:00] VITALS: RESP 18
[2021-08-09] MEDS: venlafaxine ER (24HR) 37.5 mg Capsule PO (05:38)
[2021-08-09 06:00] VITALS: BP 119/82; PULSE 71; RESP 16; TEMP 36.5; O2SAT 99
[2021-08-09] MEDS: OLANZapine 5 mg TABLET PO ×2 (08:43→18:15)
[2021-08-09] MEDS: nicotine 21 mg Patch 1 PATCH TRANSDERMA (08:43)
[2021-08-09] MEDS: propranolol 20 mg Tablet PO ×3 (08:50→20:25)
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
[2021-08-09 14:00] VITALS: BP 96/62; PULSE 73; RESP 16; TEMP 36.7; O2SAT 97
--- NOTE | 2021-08-09 17:12 | PC.SOCIAL ---
Patient did not attend group.
[2021-08-09] MEDS: trazodone 50 mg Tablet PO (20:25)
[2021-08-09 21:27] VITALS: BP 123/88; PULSE 55; RESP 18; TEMP 36.5; O2SAT 99
[2021-08-10] MEDS: venlafaxine ER (24HR) 37.5 mg Capsule PO (05:04)
[2021-08-10 06:00] VITALS: BP 93/60; PULSE 91; RESP 17; TEMP 36.8; O2SAT 96
[2021-08-10] MEDS: OLANZapine 5 mg TABLET PO ×2 (09:28→17:34)
[2021-08-10] MEDS: propranolol 20 mg Tablet PO ×3 (09:29→20:42)
[2021-08-10 13:43] VITALS: BP 105/69; PULSE 66; RESP 16; TEMP 36.5; O2SAT 97
--- NOTE | 2021-08-10 15:14 | W.PM.NPUPNS ---
Subjective NPU Subjective: Patient presented today reporting that she is feeling okay. We reviewed her medications or that the overdose has been several days ago. We discussed the risk benefits and alternatives of increasing her Zyprexa to 10 mg p.o. twice daily and increasing the Effexor XR to 75 mg with ultimate goal of likely getting to 150 mg daily and she understood and agreed to proceed as is documented in his note. She is working with the social work team for assistance in getting reengaged with services on a regular basis. She reports that she is been sleeping a lot but that is a way that she escapes. Mental Status Exam MSE Comments: This is a well-nourished, well-developed, white female, with hospital scrubs on adequate grooming, and? eye contact.? No abnormal movements except for mild psychomotor retardation. Cooperative with exam in mild distress. Speech was normal rate and volume. Mood described as okay; affect slightly subdued. Thought process, organized. Thought content: patient endorsed suicidal but denied homicidal ideation, there were no delusions reported or noted, patient denied any auditory or visual hallucinations. Attention, concentration, and memory appear intact but were not formally tested. She is alert and oriented times three. Insight and judgment are limited. Impulse control limited.? Vitals/I&O/Wt Last Vital Signs Temp 97.7 F 08/10/21 13:43 Pulse 66 08/10/21 13:43 Resp 16 08/10/21 13:43 BP 105/69 08/10/21 13:43 Pulse Ox 97 08/10/21 13:43 Data NPU : 08/08/21 15:15 08/08/21 15:15 A&P Assessment and plan (1) Suicidal ideation: Status: Acute (2) Nicotine dependence, cigarettes, uncomplicated: Status: Chronic (3) Other stimulant dependence, uncomplicated: Status: Chronic (4) Cannabis dependence, uncomplicated: Status: Chronic (5) Major depressive disorder, recurrent, severe with psychotic symptoms: Status: Acute (6) PTSD (post-traumatic stress disorder): Status: Chronic Plan This is a 40 year old, white female, with depression, anxiety, and active addiction, with a history of trauma, who presents reporting that she is open some medication changes.? 1.? Continue current medication.? Increase Zyprexa to 10 mg p.o. twice daily and Effexor XR 75 mg p.o. q. AM with a plan to titrate to 150 mg. 2.? Continue every 15 minute checks for safety. 3.? Encourage individual, group and milieu therapies. 4.? Encourage sober living treatment after discharge at the highest level of care to which he is willing to commit. Involuntary Hold Information 96 Hour Hold: 96 Hour Involuntary Admission: No 96 Hour Hold Ending Date: 11/02/19 96 Hour Hold Ending Time: 12:01 Attestations NPU Medical Necessity Statement*: Inpatient hospitalization is medically necessary and the clinically appropriate intervention at this time. We will monitor medication to make changes as indicated. Likely length of stay 2-4 days. Coding Level of Care Code Acute Heel Cementer Machine for g Fwd Diagnoses Suicidal ideation R45.851 Nicotine dependence, cigarettes, uncomplicated F17.210 Other stimulant dependence, uncomplicated F15.20 Cannabis dependence, uncomplicated F12.20 Major depressive disorder, recurrent, severe with psychotic symptoms F33.3 PTSD (post-traumatic stress disorder) F43.10
[2021-08-10] MEDS: trazodone 50 mg Tablet PO (20:42)
[2021-08-10 20:58] VITALS: BP 86/49; PULSE 66; RESP 16; TEMP 36.5; O2SAT 97
[2021-08-11 06:00] VITALS: BP 117/87; PULSE 77; RESP 16; TEMP 36.7; O2SAT 98
[2021-08-11] MEDS: venlafaxine ER (24HR) 37.5 mg Capsule PO (06:01)
[2021-08-11] MEDS: ibuprofen 800 mg tablet PO (09:02)
[2021-08-11] MEDS: OLANZapine 5 mg TABLET 10 MG PO ×2 (09:03→18:24)
[2021-08-11] MEDS: propranolol 20 mg Tablet PO ×3 (09:04→20:35)
[2021-08-11] MEDS: nicotine 21 mg Patch 1 PATCH TRANSDERMA (09:58)
[2021-08-11 14:00] VITALS: BP 128/76; PULSE 82; RESP 18; TEMP 36.1; O2SAT 98
--- NOTE | 2021-08-11 14:02 | PC.SOCIAL ---
Patient attended and participated in group.
--- NOTE | 2021-08-11 16:30 | W.PM.NPUPNS ---
Subjective NPU Subjective: She says that she has been more agitated recently. She says that she asked for the Zyprexa Zydis yesterday afternoon and this morning and says that staff would not give it to her and made her weight for her regularly scheduled Zyprexa. Her Zyprexa had been increased to 10 mg this morning and she said it made her sleepy but did help her agitation. She still feels somewhat agitated and does not feel that she could tolerate a lower dose to 5 mg at morning and 15 mg at bedtime. She said that she was started on the Effexor at [facility] about 2 months ago because she did not have medical insurance. She was previously on Pristiq which worked very well for her depression and anxiety. She is willing to try the Effexor but has medical insurance now and prefer going back to Pristiq. She said the 50 mg worked well but needed to be increased to 100 mg after a couple of months. She will work with her psychiatrist to make medical adjustments. Mental Status Exam MSE Comments: This is a well-nourished, well-developed, white female, with hospital scrubs on adequate grooming, and? eye contact.? No abnormal movements. Psychomotor activity is normal. Cooperative with exam in mild distress. Speech was normal rate and volume. Mood described as okay; affect slightly subdued. Thought process, organized. Thought content: patient endorsed suicidal but denied homicidal ideation, there were no delusions reported or noted, patient denied any auditory or visual hallucinations. Attention, concentration, and memory appear intact but were not formally tested. She is alert and oriented times three. Insight and judgment are limited. Impulse control limited.? Cognition: Patient Appearance: Appropriate Level of Consciousness: Awake, Alert, Appropriate and Follows Commands Patient Cognition Impaired: No Ability to Follow Directions: Good Patient Orientation (long list): Person, Place and Time Comprehension Ability: No Impairment Hallucination Type: None Delusion Description: Not Present Thought Process: Appropriate Affect: Affect Description: Appropriate Depressive Symptoms: Crying Spells, Hopelessness, Increased Anxiety, Recurrent Thoughts of or Suicide and Unhappiness Behavior: Patient Behavior: Appropriate Speech Pattern: Appropriate and Clear Vitals/I&O/Wt Last Vital Signs Temp 97.0 F L 08/11/21 14:00 Pulse 82 08/11/21 14:00 Resp 18 08/11/21 14:00 BP 128/76 08/11/21 14:00 Pulse Ox 98 08/11/21 14:00 Data NPU : 08/08/21 15:15 08/08/21 15:15 A&P Assessment and plan (1) Suicidal ideation: Status: Acute (2) Nicotine dependence, cigarettes, uncomplicated: Status: Chronic (3) Other stimulant dependence, uncomplicated: Status: Chronic (4) Cannabis dependence, uncomplicated: Status: Chronic (5) Major depressive disorder, recurrent, severe with psychotic symptoms: Status: Acute (6) PTSD (post-traumatic stress disorder): Status: Chronic Plan This is a 40 year old, white female, with depression, anxiety, and active addiction, with a history of trauma, who presents reporting that she is open some medication changes.? 1.? Continue current medication.? Increase Zyprexa to 10 mg p.o. twice daily. Discontinue Effexor and changed to Pristiq 50 mg 2.? Continue every 15 minute checks for safety. 3.? Encourage individual, group and milieu therapies. 4.? Encourage sober living treatment after discharge at the highest level of care to which he is willing to commit. Involuntary Hold Information 96 Hour Hold: 96 Hour Involuntary Admission: No 96 Hour Hold Ending Date: 11/02/19 96 Hour Hold Ending Time: 12:01 Attestations NPU Medical Necessity Statement*: Inpatient hospitalization is medically necessary and the clinically appropriate intervention at this time. We will initiate medications and make changes as indicated. Coding Level of Care Code Acute Casting And Curing Operator for Seun Klein Diagnoses Suicidal ideation R45.851 Nicotine dependence, cigarettes, uncomplicated F17.210 Other stimulant dependence, uncomplicated F15.20 Cannabis dependence, uncomplicated F12.20 Major depressive disorder, recurrent, severe with psychotic symptoms F33.3 PTSD (post-traumatic stress disorder) F43.10
[2021-08-11] MEDS: trazodone 50 mg Tablet PO (20:35)
[2021-08-11 20:50] VITALS: BP 134/92; PULSE 65; RESP 16; TEMP 36.6; O2SAT 99
--- NOTE | 2021-08-12 04:33 | PC.NURSE ---
PATIENT REQUESTED MEDICATION TO HELP HER SLEEP, TRAZADONE WAS GIVEN.
[2021-08-12] MEDS: OLANZapine 5 mg TABLET 10 MG PO (08:28)
[2021-08-12] MEDS: desvenlafaxine 50 mg Tablet PO (08:28)
[2021-08-12] MEDS: propranolol 20 mg Tablet PO ×3 (08:28→20:37)
--- NOTE | 2021-08-12 13:35 | W.PM.NPUPNS ---
Subjective NPU Subjective: She is much less agitated today than she was yesterday. She is still somewhat sedated from the Zyprexa but definitely does not want to decrease the morning dose. She took her first dose of Pristiq 50 mg today without any side effects. She is hoping to go to [facility] when she leaves. Mental Status Exam MSE Comments: This is a well-nourished, well-developed, white female, with hospital scrubs on adequate grooming, and? eye contact.? No abnormal movements. Psychomotor activity is normal. Cooperative with exam in mild distress. Speech was normal rate and volume. Mood described as okay; affect slightly subdued. Thought process, organized. Thought content: patient endorsed suicidal but denied homicidal ideation, there were no delusions reported or noted, patient denied any auditory or visual hallucinations. Attention, concentration, and memory appear intact but were not formally tested. She is alert and oriented times three. Insight and judgment are limited. Impulse control limited.? Cognition: Patient Appearance: Appropriate Level of Consciousness: Awake, Alert, Appropriate and Follows Commands Patient Cognition Impaired: No Ability to Follow Directions: Good Patient Orientation (long list): Person, Place and Time Comprehension Ability: No Impairment Hallucination Type: None Delusion Description: Not Present Thought Process: Appropriate Affect: Affect Description: Calm Depressive Symptoms: Crying Spells, Hopelessness, Increased Anxiety, Recurrent Thoughts of or Suicide and Unhappiness Behavior: Patient Behavior: Cooperative Speech Pattern: Clear Vitals/I&O/Wt Last Vital Signs Temp 97.9 F 08/11/21 20:50 Pulse 65 08/11/21 20:50 Resp 16 08/11/21 20:50 BP 134/92 08/11/21 20:50 Pulse Ox 99 08/11/21 20:50 Data NPU : 08/08/21 15:15 08/08/21 15:15 A&P Assessment and plan (1) Suicidal ideation: Status: Acute (2) Nicotine dependence, cigarettes, uncomplicated: Status: Chronic (3) Other stimulant dependence, uncomplicated: Status: Chronic (4) Cannabis dependence, uncomplicated: Status: Chronic (5) Major depressive disorder, recurrent, severe with psychotic symptoms: Status: Acute (6) PTSD (post-traumatic stress disorder): Status: Chronic Plan This is a 40 year old, white female, with depression, anxiety, and active addiction, with a history of trauma, who presents reporting that she is open some medication changes.? 1.? Continue current medication.? Increase Zyprexa to 10 mg p.o. twice daily. Discontinue Effexor and changed to Pristiq 50 mg 2.? Continue every 15 minute checks for safety. 3.? Encourage individual, group and milieu therapies. 4.? Encourage sober living treatment after discharge at the highest level of care to which he is willing to commit. Involuntary Hold Information 96 Hour Hold: 96 Hour Involuntary Admission: No 96 Hour Hold Ending Date: 11/02/19 96 Hour Hold Ending Time: 12:01 Attestations NPU Medical Necessity Statement*: Inpatient hospitalization is medically necessary and the clinically appropriate intervention at this time. We will initiate medications and make changes as indicated. Coding Level of Care Code Acute Retread Technician for Seun Klein Diagnoses Suicidal ideation R45.851 Nicotine dependence, cigarettes, uncomplicated F17.210 Other stimulant dependence, uncomplicated F15.20 Cannabis dependence, uncomplicated F12.20 Major depressive disorder, recurrent, severe with psychotic symptoms F33.3 PTSD (post-traumatic stress disorder) F43.10
[2021-08-12 14:00] VITALS: BP 109/72; PULSE 58; RESP 16; TEMP 36.5; O2SAT 97
[2021-08-12 20:28] VITALS: BP 128/85; PULSE 65; RESP 16; O2SAT 99
[2021-08-12] MEDS: OLANZapine 10 mg TABLET PO (20:36)
[2021-08-12] MEDS: trazodone 50 mg Tablet PO (20:37)
[2021-08-13 06:00] VITALS: BP 116/74; PULSE 71; RESP 18; O2SAT 98
[2021-08-13] MEDS: propranolol 20 mg Tablet PO ×4 (08:51→23:39)
[2021-08-13] MEDS: OLANZapine 10 mg TABLET PO ×3 (08:51→23:38)
[2021-08-13] MEDS: desvenlafaxine 50 mg Tablet PO (08:51)
--- NOTE | 2021-08-13 11:28 | P.NPUPN_ITS ---
Subjective NPU Subjective: She continues to feel that the agitation is well controlled with the Zyprexa 10 mg twice daily. She does not feel that she has an increased appetite from that. The sedation is improving. She took her second dose of Pristiq this morning without side effects. She feels that she will be ready to go to [facility] on Sunday. Mental Status Exam MSE Comments: This is a well-nourished, well-developed, white female, with hospital scrubs on adequate grooming, and? eye contact.? No abnormal movements. Psychomotor activity is normal. Cooperative with exam in mild distress. Speech was normal rate and volume. Mood described as okay; affect slightly subdued. Thought process, organized. Thought content: She denies suicidal or homicidal ideation, there were no delusions reported or noted, patient denied any auditory or visual hallucinations. Attention, concentration, and memory appear intact but were not formally tested. She is alert and oriented times three. Insight and judgment are limited. Impulse control limited.? Cognition: Patient Appearance: Appropriate and Disheveled/Poor Hygiene Level of Consciousness: Awake, Alert, Appropriate and Follows Commands Patient Cognition Impaired: No Ability to Follow Directions: Good Patient Orientation (long list): Person, Place and Time Comprehension Ability: No Impairment Hallucination Type: None Delusion Description: Not Present Thought Process: Appropriate Affect: Affect Description: Calm Depressive Symptoms: Crying Spells, Hopelessness, Increased Anxiety, Recurrent Thoughts of or Suicide and Unhappiness Behavior: Patient Behavior: Cooperative Speech Pattern: Clear Vitals/I&O/Wt Last Vital Signs Temp 97.7 F 08/12/21 14:00 Pulse 71 08/13/21 06:00 Resp 18 08/13/21 06:00 BP 116/74 08/13/21 06:00 Pulse Ox 98 08/13/21 06:00 Data NPU : 08/08/21 15:15 08/08/21 15:15 A&P Assessment and plan (1) Suicidal ideation: Status: Acute (2) Nicotine dependence, cigarettes, uncomplicated: Status: Chronic (3) Other stimulant dependence, uncomplicated: Status: Chronic (4) Cannabis dependence, uncomplicated: Status: Chronic (5) Major depressive disorder, recurrent, severe with psychotic symptoms: Status: Acute (6) PTSD (post-traumatic stress disorder): Status: Chronic Plan This is a 40 year old, white female, with depression, anxiety, and active addiction, with a history of trauma, who presents reporting that she is open some medication changes.? 1.? Continue current medication.? Increase Zyprexa to 10 mg p.o. twice daily. Discontinue Effexor and changed to Pristiq 50 mg 2.? Continue every 15 minute checks for safety. 3.? Encourage individual, group and milieu therapies. 4.? Encourage sober living treatment after discharge at the highest level of care to which he is willing to commit. Involuntary Hold Information 96 Hour Hold: 96 Hour Involuntary Admission: No 96 Hour Hold Ending Date: 11/02/19 96 Hour Hold Ending Time: 12:01 Attestations NPU Medical Necessity Statement*: Inpatient hospitalization is medically necessary and the clinically appropriate intervention at this time. We will initiate medications and make changes as indicated. Coding Level of Care Code Acute Electricity Trader for Seun Klein Diagnoses Suicidal ideation R45.851 Nicotine dependence, cigarettes, uncomplicated F17.210 Other stimulant dependence, uncomplicated F15.20 Cannabis dependence, uncomplicated F12.20 Major depressive disorder, recurrent, severe with psychotic symptoms F33.3 PTSD (post-traumatic stress disorder) F43.10
[2021-08-13 14:00] VITALS: BP 119/81; PULSE 80; RESP 16; TEMP 36.4; O2SAT 99
[2021-08-13 20:45] VITALS: BP 106/71; PULSE 67; RESP 18; TEMP 36.6; O2SAT 99
[2021-08-13] MEDS: trazodone 50 mg Tablet PO ×2 (23:38→23:39)
[2021-08-14 06:00] VITALS: BP 140/82; PULSE 93; RESP 16; TEMP 36; O2SAT 99
[2021-08-14] MEDS: desvenlafaxine 50 mg Tablet PO (08:13)
[2021-08-14] MEDS: nicotine 21 mg Patch 1 PATCH TRANSDERMA (08:17)
[2021-08-14] MEDS: acetaminophen 325 mg Tablet 650 MG PO (08:17)
[2021-08-14] MEDS: OLANZapine 10 mg TABLET PO ×2 (08:28→21:43)
--- NOTE | 2021-08-14 08:43 | P.NPUPN_ITS ---
Subjective NPU Subjective: She said that she is doing better. She is much less agitated during the day. She feels like she is feeling a little perkier. She is not as sedated by the morning Zyprexa 10 mg. She feels like her mood is a little better. She feels like she is ready for discharge and hopefully they will have a bed for for her tomorrow at [facility]. She wanted to get a urinalysis to see if she was clean now. She is not on parole or probation but just would feel better if she knew the drugs were out of her system. Mental Status Exam MSE Comments: This is a well-nourished, well-developed, white female, with hospital scrubs on adequate grooming, and? eye contact.? No abnormal movements. Psychomotor activity is normal. Cooperative with exam in no distress. Speech was normal rate and volume. Mood described as okay; affect slightly subdued. Thought process, organized. Thought content: She denies suicidal or homicidal ideation, there were no delusions reported or noted, patient denied any auditory or visual hallucinations. Attention, concentration, and memory appear intact but were not formally tested. She is alert and oriented times three. Insight and judgment are limited. Impulse control limited.? Cognition: Patient Appearance: Appropriate and Disheveled/Poor Hygiene Level of Consciousness: Awake, Alert, Appropriate and Follows Commands Patient Cognition Impaired: No Ability to Follow Directions: Good Patient Orientation (long list): Person, Place and Time Comprehension Ability: No Impairment Hallucination Type: None Delusion Description: Not Present Thought Process: Appropriate Affect: Affect Description: Appropriate and Anxious Depressive Symptoms: Crying Spells, Hopelessness, Increased Anxiety, Recurrent Thoughts of or Suicide and Unhappiness Behavior: Patient Behavior: Appropriate and Cooperative Speech Pattern: Appropriate and Clear Vitals/I&O/Wt Last Vital Signs Temp 96.8 F L 08/14/21 06:00 Pulse 93 08/14/21 06:00 Resp 16 08/14/21 06:00 BP 140/82 08/14/21 06:00 Pulse Ox 99 08/14/21 06:00 Weight last 48 hrs Weight 80.467 kg Data NPU : 08/08/21 15:15 08/08/21 15:15 A&P Assessment and plan (1) Suicidal ideation: Status: Acute (2) Nicotine dependence, cigarettes, uncomplicated: Status: Chronic (3) Other stimulant dependence, uncomplicated: Status: Chronic (4) Cannabis dependence, uncomplicated: Status: Chronic (5) Major depressive disorder, recurrent, severe with psychotic symptoms: Status: Acute (6) PTSD (post-traumatic stress disorder): Status: Chronic Plan This is a 40 year old, white female, with depression, anxiety, and active addiction, with a history of trauma, who presents reporting that she is open some medication changes.? 1.? Continue current medication.? Increase Zyprexa to 10 mg p.o. twice daily. Discontinue Effexor and changed to Pristiq 50 mg 2.? Continue every 15 minute checks for safety. 3.? Encourage individual, group and milieu therapies. 4.? Encourage sober living treatment after discharge at the highest level of care to which he is willing to commit. Involuntary Hold Information 96 Hour Hold: 96 Hour Involuntary Admission: No 96 Hour Hold Ending Date: 11/02/19 96 Hour Hold Ending Time: 12:01 Attestations U Medical Necessity Statement*: Inpatient hospitalization is medically necessary and the clinically appropriate intervention at this time. We will initiate medications and make changes as indicated. 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
[2021-08-14] MEDS: propranolol 20 mg Tablet PO ×3 (09:05→21:15)
[2021-08-14 14:00] VITALS: BP 111/78; PULSE 82; RESP 16; TEMP 36.8; O2SAT 97
[2021-08-14] MEDS: OLANZapine 5 mg ODT PO (21:15)
[2021-08-14] MEDS: trazodone 50 mg Tablet PO (21:42)
[2021-08-14 21:51] VITALS: BP 117/81; PULSE 61; RESP 20; TEMP 36.7; O2SAT 98
[2021-08-15 06:00] VITALS: BP 174/92; PULSE 91; RESP 18; TEMP 36.4; O2SAT 97
[2021-08-15] MEDS: nicotine 21 mg Patch 1 PATCH TRANSDERMA (08:27)
[2021-08-15] MEDS: ibuprofen 800 mg tablet PO (08:28)
[2021-08-15] MEDS: propranolol 20 mg Tablet PO (08:28)
[2021-08-15] MEDS: OLANZapine 10 mg TABLET PO (08:28)
[2021-08-15] MEDS: desvenlafaxine 50 mg Tablet PO (08:28)
--- NOTE | 2021-08-15 10:18 | P.NPUDS_ITS ---
Diagnoses at Discharge Discharge Diagnosis (1) Suicidal ideation: Status: Acute (2) Nicotine dependence, cigarettes, uncomplicated: Status: Chronic (3) Other stimulant dependence, uncomplicated: Status: Chronic Permanent problem details: Not yet in remission last use of methamphetamines 06/02/21 (4) Cannabis dependence, uncomplicated: Status: Chronic Permanent problem details: Not yet in remission last use 06/03/21 (5) Major depressive disorder, recurrent, severe with psychotic symptoms: Status: Acute (6) PTSD (post-traumatic stress disorder): Status: Chronic Reason for Visit Reason for Visit: Psych Eval Brief History: History of Present Illness Elly Rosado is a 40 year old female who presented to the emergency department with the following report: Chief Complaint: Psychiatric Symptoms Stated Complaint: Psych Eval Time Seen by Provider: 08/08/21 15:00 Source: patient Mode of arrival: ambulatory Limitations: no limitations History of Present Illness:?? Patient is a 40-year-old female presents to ED today with complaint of severe depression and suicidal ideations.? Patient tells me she feels utterly hopeless.? Patient tells me she has no friends or family or support system.? She tells me she is currently homeless.? She states she recently was in drug addiction rehabilitation was clean from methamphetamine for over 40 days but relapsed two days ago.? Patient tells me she has a plan to overdose on her medications in a suicide attempt. MD complaint: suicidal ideation and feels depressed Onset (ago): day(s) Duration: constant History of same: Yes Exacerbating factors: drug use Context: recent drug abuse and significant life stressor Associated psychiatric symptoms: depression and suicidal ideation Associated symptoms: Reports depression and suicidal ideation; Deny auditory hallucinations, visual hallucinations or homicidal ideation Treatments prior to arrival: none If self harm: admits thoughts of self harm, has plan and has acted on plan (states she took more than prescribed of her medications a few days ago in SI attempt) She was admitted to the neuropsychiatric unit for definitive treatment of those issues.? She presents today reporting that she has done okay in the she has been gone since the last time she was seen by this teletypewriter operator in 2019.? She reports that she feels like the medications have been fairly helpful but that recently she is felt depressed again and then suicidal.? Reports that she did have a suicidal gesture of overtaking some of her medications recently but also she reports that part of that was that she was upset feel like they were not working.? Discussed the possibility of increasing the medication but wanted to understand when that occurred so as to not cause problems with your with for about that.? She also reports that she is doing better as far as her addiction is concerned and her UDS was positive for methamphetamines but was positive for cannabis.? We discussed the risk of his alternatives of possibly increasing her medication once we identify when the increased ingestion occurred and she understood and agreed to proceed as is documented in this note.? She denied substantive changes since her last evaluation which we reviewed and excerpt is included below for context. Hospital Course Hospital Course She slowly acclimated to the individual, group and milieu therapies provided. Zyprexa was increased to 10 mg twice daily which she felt was very helpful for her agitation. She requested that Effexor be changed to Pristiq which has helped her before. She was on Effexor because she did not previously have insurance. She tolerated these doses and showed steady improvement during her stay. She was able to contract for safety outside hospital prior to disc harge. During the hospitalization, patient had routine laboratory studies which were within normal limits except for few outliers. Additionally there was a general medical evaluation which was also within normal limits and revealed no new acute processes. Discharge Summary: At the time of discharge, lethality was denied. Mood and anxiety were well managed. Patient endorsed a plan to follow-up with the aftercare recommendations of the treatment team. Patient was evaluated and deemed to be absent credible lethality, and had achieved the maximum benefit from an inpatient hospitalization, so was discharged. Involuntary Hold Information 96 Hour Hold: 96 Hour Involuntary Admission: No 96 Hour Hold Ending Date: 11/02/19 96 Hour Hold Ending Time: 12:01 Mental Status Exam MSE Comments: This is a well-nourished, well-developed, white female, with hospital scrubs on adequate grooming, and? eye contact.? No abnormal movements. Psychomotor activity is normal. Cooperative with exam in no distress. Speech was normal rate and volume. Mood is good; affect euthymic. Thought process, organized. Thought content: She denies suicidal or homicidal ideation, there were no delusions reported or noted, patient denied any auditory or visual hallucinations. Attention, concentration, and memory appear intact but were not formally tested. She is alert and oriented times three. Insight and judgment are limited. Impulse control limited.? Cognition: Patient Appearance: Appropriate and Disheveled/Poor Hygiene Level of Consciousness: Awake, Alert, Appropriate and Follows Commands Patient Cognition Impaired: No Ability to Follow Directions: Good Patient Orientation (long list): Person, Place and Time Comprehension Ability: No Impairment Hallucination Type: None Delusion Description: Not Present Thought Process: Appropriate Affect: Affect Description: Calm Depressive Symptoms: Crying Spells, Hopelessness, Increased Anxiety, Recurrent Thoughts of or Suicide and Unhappiness Behavior: Patient Behavior: Cooperative Speech Pattern: Clear Discharge Data Studies Completed and Pending: Pending at discharge Category Date Time Status Drug Screen, Urin e Routine Lab 08/14/21 08:42 Received Laboratory Results WBC 5.4 10^3/uL (4.0- 10.0) 08/08/21 15:15 RBC 4.88 10^6/uL (4.1 -5.3) 08/08/21 15:15 Hgb 14.4 g/dL (11.5-1 5.3) 08/08/21 15:15 Hct 42.8 % (37.0-47.0 ) 08/08/21 15:15 MCV 87.7 fl (81-99) 08/08/21 15:15 MCH 29.5 pg (28.0-34. 0) 08/08/21 15:15 MCHC 33.6 g/dL (30.0-3 6.0) 08/08/21 15:15 RDW 13.2 % (12.1-15.1 ) 08/08/21 15:15 Plt Count 325 10^3/cmm (130 -400) 08/08/21 15:15 MPV 9.4 fL (7.4-10.4) 08/08/21 15:15 Neut % (Auto) 50.3 % 08/08/21 15:15 Lymph % (Auto) 39.0 % 08/08/21 15:15 Trinity % (Auto) 7.9 % 08/08/21 15:15 Eos % (Auto) 1.7 % 08/08/21 15:15 Baso % (Auto) 0.7 % 08/08/21 15:15 Neut # (Auto) 2.73 10^3/uL (1.8 -7.7) 08/08/21 15:15 Lymph # (Auto) 2.1 10^3/uL (0.8- 4.8) 08/08/21 15:15 Trinity # (Auto) 0.4 10^3/uL (0.2- 0.9) 08/08/21 15:15 Eos # (Auto) 0.1 10^3/uL (0.0- 0.8) 08/08/21 15:15 Baso # (Auto) 0.0 10^3/uL (0.0- 0.1) 08/08/21 15:15 Nucleated RBC % (a uto) 0 % 08/08/21 15:15 Nucleated RBCs # 0.0 /100WBC 08/08/21 15:15 Sodium 139 mmol/L (136-1 45) 08/08/21 15:15 Potassium 4.1 mmol/L (3.5-5 .1) 08/08/21 15:15 Chloride 105 mmol/L (98-10 7) 08/08/21 15:15 Carbon Dioxide 23 mmol/L (22-29) 08/08/21 15:15 Anion Gap 15.1 (5-19) 08/08/21 15:15 BUN 15 mg/dL (6-20) 08/08/21 15:15 Creatinine 0.7 mg/dL (0.5-0. 9) 08/08/21 15:15 GFR Calculation 91.8 mL/min (90-1 30) 08/08/21 15:15 Glucose 81 mg/dL (65-115) 08/08/21 15:15 Calculated Osmolal ity 288 mOsm/kg (285- 295) 08/08/21 15:15 Calcium 9.6 mg/dL (8.5-10 .5) 08/08/21 15:15 Total Bilirubin 0.3 mg/dL (0.15-1 .2) 08/08/21 15:15 AST 11 U/L (0-32) 08/08/21 15:15 ALT 10 U/L (0-33) 08/08/21 15:15 Alkaline Phosphata se 71 IU/L (35-105) 08/08/21 15:15 Total Protein 7.3 g/dL (6.6-8.7 ) 08/08/21 15:15 Albumin 4.0 g/dL (3.5-5.2 ) 08/08/21 15:15 Globulin 3.3 g/dL (1.3-4.6 ) 08/08/21 15:15 HCG, Qual Negative (Negati ve) 08/08/21 15:15 Salicylates < 0.3 mg/dL (3-10 ) L 08/08/21 15:15 Urine Opiates Scre en Negative ng/mL (N egative) 08/08/21 17:27 Acetaminophen < 5.0 ug/mL (10-3 0) L 08/08/21 15:15 Ur Barbiturates Sc reen Positive ng/mL (N egative) H 08/08/21 17:27 Ur Phencyclidine S crn Negative ng/mL (N egative) 08/08/21 17:27 Ur Amphetamines Sc reen Negative ng/mL (N egative) 08/08/21 17:27 U Benzodiazepines Scrn Negative ng/mL (N egative) 08/08/21 17:27 Urine Cocaine Scre en Negative ng/mL (N egative) 08/08/21 17:27 U Marijuana (THC) Screen Positive ng/mL (N egative) H 08/08/21 17:27 Ethyl Alcohol < 10 mg/dL (0-10) 08/08/21 15:15 Vitals: Last Vital Signs Temp 97.6 F 08/15/21 06:00 Pulse 91 08/15/21 06:00 Resp 18 08/15/21 06:00 BP 174/92 08/15/21 06:00 Pulse Ox 97 08/15/21 06:00 Discharge Plan Discharge Patient Disposition: Home Condition: Stable Prescriptions: New olanzapine 10 mg Tablet 10 mg PO 0900,2100 Qty: 0 0RF desvenlafaxine succinate 50 mg Tablet Extended Release 24 Hr 50 mg PO DAILY 30 Days Qty: 30 1RF Continued olanzapine [Zyprexa Zydis] 5 mg tablet,disintegrating 5 mg PO DAILY PRN (Reason: severe agitation) Qty: 30 2RF propranolol 20 mg tablet 20 mg PO TID Qty: 90 3RF ibuprofen 200 mg Tablet 800 mg PO Q8H PRN (Reason: Pain) 0RF trazodone 50 mg tablet 50 mg PO BEDTIME 0RF Discontinued olanzapine [Zyprexa] 5 mg tablet 5 mg PO BID Qty: 60 3RF venlafaxine [Effexor XR] 37.5 mg capsule,extended release 24hr 37.5 mg PO QAM 0RF Discharge Orders: Discharge Order (Routine); Ordered 08/15/21 Ordered By: Luis M Evans Referrals: Home [facility] [Other] (Call Nohemi if need assistance. ) [facility] [Outside] (Referrals for case managment and therapy. You are on a waiting list and will be called. ) Chrissy Rossi, PMHNP [Staff Physician] - 08/15/21 3:00 pm (Follow up apt. ) Discharge Diet: Regular Discharge Activity: Resume usual activity Patient Instructions: Opioid Safety Discharge Attestations NPU Time Spent in Discharge Care*: less than 30 min Specific Discharge Activities: Specific discharge activities: educating patient, discussing with corrections caseworker/social workers/dc planners, doc umenting/other paperwork and evaluating patient/reviewing data Coding Level of Care Code Acute Chg FW DC note Diagnoses Suicidal ideation R45.851 Nicotine dependence, cigarettes, uncomplicated F17.210 Other stimulant dependence, uncomplicated F15.20 Cannabis dependence, uncomplicated F12.20 Major depressive disorder, recurrent, severe with psychotic symptoms F33.3 PTSD (post-traumatic stress disorder) F43.10
[2021-08-15 10:27] VITALS: BP 174/92; PULSE 91; RESP 18; TEMP 36.4; O2SAT 97
[2021-08-15 11:09] LABS: Amphetamines Screen Urine Negative (Negative); Barbiturates Screen Urine Negative (Negative); Benzodiazepines Screen Urine Negative (Negative); Cocaine Screen Urine Negative (Negative); Opiate Screen Urine Negative (Negative); PCP Screen Urine Negative (Negative); THC Screen Urine Negative (Negative)
== END 2021-08-15 11:04 | disposition home or self-care (01) | DRG 885 ==
LOC: ER 15:53 → NP 08-09 06:01
PROVIDERS: Physician Assistant; Psychiatry & Neurology Psychiatry; Admitting Provider Psychiatry & Neurology Psychiatry; Emergency Provider Family Medicine; Visit Provider Psychiatry & Neurology Psychiatry
DX: F33.3 Major depressive disorder, recurrent, severe with psychotic symptoms (principal); R45.851 Suicidal ideations; F15.20 Other stimulant dependence, uncomplicated; Z59.00 Homelessness unspecified; F12.20 Cannabis dependence, uncomplicated; F41.9 Anxiety disorder, unspecified; F17.210 Nicotine dependence, cigarettes, uncomplicated; F43.12 Post-traumatic stress disorder, chronic; Z79.891 Long term (current) use of opiate analgesic
CPT/HCPCS: 80053; 80306; 80307; 84703; 85025; 97150; 97165; 99285

== ENCOUNTER 2021-10-04 21:26 | Emergency (ER) | payer MEDICAID, SELFPAY ==
[2021-10-04 21:27] VITALS: BP 134/85; PULSE 73; RESP 18; TEMP 36.7; O2SAT 95; BMI 29.3
--- NOTE | 2021-10-04 21:32 | CTR_ITS ---
PROCEDURE INFORMATION: Exam: CT Head Without Contrast Exam date and time: 10/04/2021 9:45 PM Age: 40 years old Clinical indication: Injury or trauma; Fall; Blunt trauma (contusions or hematomas); Patient HX: Patient was sitting on a bar stool when she had a syncopal episode and fell back and struck RT occipital against concrete floor. TECHNIQUE: Imaging protocol: Computed tomography of the head without contrast. Radiation optimization: All CT scans at this facility use at least one of these dose optimization techniques: automated exposure control; mA and/or kV adjustment per patient size (includes targeted exams where dose is matched to clinical indication); or iterative reconstruction. COMPARISON: CR Cervical Spine AP/Lat* [id number] 12/05/2018 3:04 PM RADIATION DOSE METRICS: Total DLP (mGy-cm): 963.97 FINDINGS: Brain: Normal. No hemorrhage. Unremarkable white matter. No mass effect. Cerebral ventricles: No ventriculomegaly. Paranasal sinuses: Visualized sinuses are unremarkable. No fluid levels. Mastoid air cells: Visualized mastoid air cells are well aerated. Bones/joints: Unremarkable. No acute fracture. Soft tissues: Mild soft tissue swelling is present in the right parietooccipital scalp. CT/CT head wo con* [id number] IMPRESSION: No acute intracranial abnormality.
--- NOTE | 2021-10-04 21:36 | ECG_ITS ---
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 Measurements Intervals [place] Rate: 62 P: 58 [place]: 140 QRS: 75 QRSD: 93 T: 67 QT: 410 QTc: 417 Interpretive Statements SINUS RHYTHM Compared to ECG 06/16/2021 23:44:43 No significant changes Electronically Signed On 10-05-2021 10:23:56 CDT by Rubens Groves M.D. [email or web address]
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
[2021-10-04] MEDS: HYDROcodone-acetaminophen 5-325 mg Tablet 1 TAB PO (21:40)
[2021-10-04 22:16] VITALS: BP 136/85; PULSE 72; RESP 18; TEMP 36.6; O2SAT 99
== END 2021-10-04 22:16 | disposition home or self-care (01) ==
PROVIDERS: Emergency Provider Emergency Medicine
DX: S09.8XXA Other specified injuries of head, initial encounter (principal); F17.210 Nicotine dependence, cigarettes, uncomplicated; W07.XXXA Fall from chair, initial encounter
CPT/HCPCS: 70450; 93005; 99283

== ENCOUNTER 2021-12-24 19:59 | Emergency (ER) | payer MEDICAID, SELFPAY ==
[2021-12-24 20:04] VITALS: BP 153/105; PULSE 107; RESP 16; TEMP 36.4; O2SAT 97
--- NOTE | 2021-12-24 20:11 | XRR_ITS ---
PROCEDURE INFORMATION: Exam: XR Left Wrist Exam date and time: 12/24/2021 9:00 PM Age: 41 years old Clinical indication: Injury or trauma; Fall; Blunt trauma (contusions or hematomas); Wrist; Left; Additional info: Dog bite TECHNIQUE: Imaging protocol: Radiologic exam of the Left wrist. Views: 3 or more views. COMPARISON: CR XR hand LT min 3V* [id number] 12/05/2018 2:42 PM FINDINGS: Bones/joints: Osseous structures are intact. Negative for fracture. Joint spaces are preserved. Soft tissues: Normal. XR/XR wrist LT min 3V* [id number] IMPRESSION: No acute findings.
--- NOTE | 2021-12-24 20:43 | ED_ITS ---
HPI - Animal Bite General: Chief Complaint: Animal Bite Stated Complaint: animal bite left wrist Time Seen by Provider: 12/24/21 20:43 History of Present Illness: 41-year-old female was walking this evening and was bit by an unknown dog. Patient has 4 puncture wounds to the distal left forearm. Patient has good range of motion of the arm and hand. Pulses are intact. Mild swelling is noted to the distal forearm. Review of Systems General: Reports: 10 or more systems reviewed and unremarkable except in HPI and below Musc: Reports: extremity pain and extremity swelling Skin/Breast: Reports: new lesions PFSH ED PFSH: Medical History (Updated 12/24/21 @ 21:09 by SUHAS Villar) Anxiety Cannabis dependence, uncomplicated Nicotine dependence, cigarettes, uncomplicated Other stimulant dependence, uncomplicated Psychiatric care PTSD (post-traumatic stress disorder) Social History Smoking and tobacco status: current every day smoker Physical Exam Const: COMMON NORMALS: alert HENMT: COMMON NORMALS: normocephalic HEAD & SCALP: normocephalic Neck/C-Spine: COMMON NORMALS: full ROM Resp: COMMON NORMALS: normal respiratory effort Cardio: COMMON NORMALS: regular rate RATE: regular rate Back/Pelvis: COMMON NORMALS: thoracic and lumbar spine normal to inspection Extremity: LEFT UPPER EXTREMITY: Yes lower arm (1 posterior puncture wound and 3 inner arm puncture wounds.) Left lower arm: Yes inspection (Mild swelling, no pain with movement of the arm), Yes palpation and Yes neurovascular exam Neuro: SENSORIUM/ORIENTATION: Yes alert Skin: TRAUMA: puncture (4 puncture wounds to the left forearm) Course Vital Signs: Vital signs: Vital Signs Temperature 97.6 F 12/24/21 20:04 Pulse Rate 107 H 12/24/21 20:04 Respiratory Rate 16 12/24/21 20:04 Blood Pressure 153/105 12/24/21 20:04 Pulse Oximetry 97 12/24/21 20:04 Oxygen Delivery Me thod 12/24/21 20:04 MDM - Animal Bite Medical Decision Making Patient comes in for injury to the left forearm from the animal attack. Patient was walking and a unknown dog bit her on the left lower forearm. On exam we note a puncture wound to the forearm with some mild swelling. Patient has good range of motion and movement of the wrist and hand does not elicit pain. Differential diagnosis includes fracture, foreign body, animal bite, need for prophylaxis tetanus, need for rabies vaccine and immunoglobulin, need for antibiotic. Reviewed exam with patient with recommendations for treatment and follow-up. Patient reported understanding agreed to plan. X-ray noted no fractures, or foreign body. Discharge Plan Discharge Patient Disposition: Home Clinical Impression: Dog bite of left forearm Qualifiers: Encounter type: initial encounter Qualified Code(s): S51.852A - Open bite of left forearm, initial encounter Condition: Stable Prescriptions: New amoxicillin-pot clavulanate 875-125 mg tablet 1 tab PO BID Qty: 14 0RF No Action olanzapine 10 mg tablet 10 mg PO 0900,2100 Qty: 60 3RF Rx Instructions: Take one tablet at 9 am and 9 pm desvenlafaxine succinate 50 mg tablet extended release 24 hr 50 mg PO .morning 30 Days Qty: 30 3RF Rx Instructions: Take one tablet every morning propranolol 20 mg tablet 20 mg PO TID Qty: 90 3RF olanzapine [Zyprexa Zydis] 5 mg tablet,disintegrating 5 mg PO DAILY PRN (Reason: severe agitation) Qty: 30 2RF ibuprofen 200 mg Tablet 800 mg PO Q8H PRN (Reason: Pain) trazodone 50 mg tablet 50 mg PO BEDTIME Discharge Orders: Discharge ED (Routine); Ordered 12/24/21 Ordered By: Garrison Mcmahan Discharge Diet: Usual diet Discharge Activity: Increase activity as tolerated Patient Instructions: Wound Care (General) Activity Restrictions/Additional Instructions: Wash wound with warm soapy water 2 times a day. Use acetaminophen and ibuprofen as needed for pain. Use ice or heat for further comfort relief. Take antibiotic twice a day for the next 7 days. Follow-up on day 3, 7, and 14 for the completion of the rabies vaccine series. Return to the ER for new concerns. Coding Level of Care Code ED Construction Equipment Operator for Seun Klein Exam Comprehensive
[2021-12-24] MEDS: tetanus-dipt-pertussis 0.5 mL SDV IM (20:54)
[2021-12-24] MEDS: amoxicillin-clav 875-125 mg Tablet 1 TAB PO (20:57)
[2021-12-24] MEDS: rabies vaccine 2.5 unit SDV IM (20:58)
[2021-12-24] MEDS: rabies IG 300 unit/mL SDV 1 mL 114 UNIT IM (21:20)
[2021-12-24 21:35] VITALS: RESP 16
[2021-12-24] MEDS: acetaminophen 500 mg Tablet 1000 MG PO (21:35)
== END 2021-12-24 21:36 | disposition home or self-care (01) ==
PROVIDERS: Emergency Provider Nurse Practitioner Family
DX: S51.852A Open bite of left forearm, initial encounter (principal); W54.0XXA Bitten by dog, initial encounter; Z23 Encounter for immunization; Z29.14 Encounter for prophylactic rabies immune globulin
CPT/HCPCS: 73110; 90375; 90471; 90675; 90715; 96372; 99284

== ENCOUNTER 2021-12-27 17:17 | Emergency (ER) | payer MEDICAID, SELFPAY ==
[2021-12-27 17:35] VITALS: BMI 28.8
[2021-12-27 17:38] VITALS: BP 140/105; PULSE 101; RESP 18; TEMP 36.6; O2SAT 96
[2021-12-27] MEDS: rabies vaccine 2.5 unit SDV IM (18:35)
[2021-12-27 18:39] VITALS: BP 138/90; PULSE 98; RESP 18; TEMP 36.6; O2SAT 96
--- NOTE | 2022-01-10 07:14 | W.ED.RECABL ---
HPI - Recheck/Abnormal Lab/Rx General: Chief Complaint: Recheck/Abnormal Lab/Rx Stated Complaint: second rabie shot History of Present Illness: Patient is a 41-year-old female comes to the ED for second rabies shot. Patient was seen here for a dog bite on December 24. Patient's dog bite occurred on distal left forearm. Dog bite wound is healing well and patient has no other complaints. Review of Systems Const: Denies: fever(s), chills or fatigue Eyes: Denies: change in vision or eye discomfort ENMT: Denies: throat pain, odynophagia, nasal discharge or nasal congestion Card: Denies: chest pain, palpitations, edema, swelling of feet/ankles, dyspnea on exertion or orthopnea Resp: Denies: dyspnea, productive cough or non-productive cough GI: Denies: abdominal pain, nausea, vomiting, diarrhea, constipation or hematochezia : Denies: flank pain, dysuria or hematuria Musc: Denies: neck pain, back pain or extremity swelling Skin/Breast: Reports: other (Healing dog bite on left forearm.); Denies: rash or new lesions Neuro: Denies: headache(s), numbness in extremities or weakness in extremities PFSH ED PFSH: Medical History (Updated 01/10/22 @ 07:20 by ZACKARY Lara) Anxiety Cannabis dependence, uncomplicated Nicotine dependence, cigarettes, uncomplicated Other stimulant dependence, uncomplicated Psychiatric care PTSD (post-traumatic stress disorder) Social History Smoking and tobacco status: current every day smoker Physical Exam Const: COMMON NORMALS: patient oriented x3 HENMT: COMMON NORMALS: normocephalic HEAD & SCALP: normocephalic MOUTH: Normal oral and palatal mucosa present THROAT: posterior oropharynx normal and uvula midline Neck/C-Spine: COMMON NORMALS: supple GENERAL: Yes normal visual inspection Resp: COMMON NORMALS: normal respiratory effort, No retractions, No use of accessory muscles and clear to auscultation bilaterally AUSCULTATION: clear to auscultation bilaterally Cardio: COMMON NORMALS: regular rate, regular rhythm, S1 normal heart sound present, S2 normal heart sound present, No gallops present (Cardio), No clicks present (Cardio), No murmurs present (Cardio) and Peripheral pulses 2+ throughout RATE: regular rate RHYTHM: regular rhythm HEART SOUNDS: S1 normal heart sound present and S2 normal heart sound present PERIPHERAL PULSES: Peripheral pulses 2+ throughout GI: COMMON NORMALS: Normal to inspection, nondistended, normoactive bowel sounds present, Soft to palpation, non-tender and no masses PALPATION: Yes Soft to palpation : COMMON NORMALS: Yes no CVA tenderness BLADDER/KIDNEY EXAM: Yes no CVA tenderness Back/Pelvis: COMMON NORMALS: no CVA tenderness Extremity: COMMON NORMALS: normal to inspection Neuro: COMMON NORMALS: patient oriented x3 GAIT: Yes Normal gait present Skin: GENERAL SKIN EXAM: dry skin Course Vital Signs: Vital signs: Vital Signs Temperature 97.9 F 12/27/21 18:39 Pulse Rate 98 12/27/21 18:39 Respiratory Rate 18 12/27/21 18:39 Blood Pressure 138/90 12/27/21 18:39 Pulse Oximetry 96 12/27/21 18:39 Oxygen Delivery Me thod 12/27/21 17:38 MDM - Recheck/Abnormal Lab/Rx Medical Decision Making Patient is a 41-year-old female comes to the ED for second rabies shot. Patient had dog bite back on left forearm and was seen here on December 24 and started on rabies postexposure vaccination series. She was given her second rabies shot here in the ED. She was told to follow-up to receive her third shot on December 31. Patient stood agree with plan. Discharge Plan Discharge Patient Disposition: Home Clinical Impression: Need for rabies vaccination Prescriptions: No Action olanzapine 10 mg tablet 10 mg PO 0900,2100 Qty: 60 3RF Rx Instructions: Take one tablet at 9 am and 9 pm desvenlafaxine succinate 50 mg tablet extended release 24 hr 50 mg PO .morning 30 Days Qty: 30 3RF Rx Instructions: Take one tablet every morning propranolol 20 mg tablet 20 mg PO TID Qty: 90 3RF olanzapine [Zyprexa Zydis] 5 mg tablet,disintegrating 5 mg PO DAILY PRN (Reason: severe agitation) Qty: 30 2RF ibuprofen 200 mg Tablet 800 mg PO Q8H PRN (Reason: Pain) trazodone 50 mg tablet 50 mg PO BEDTIME amoxicillin-pot clavulanate 875-125 mg tablet 1 tab PO BID Qty: 14 0RF Discharge Orders: Discharge ED (Routine); Ordered 01/10/22 Ordered By: Jabier Alexis Discharge Diet: Regular Discharge Activity: Resume usual activity Activity Restrictions/Additional Instructions: Follow-up with medical provider as directed. Take medications as prescribed. Return to the ER or your medical provider if condition worsens. Please read and understand discharge instructions. Thank you for choosing [facility] for your healthcare needs today. Please realize this is an emergency room and that we are providing you with a medical screening exam and this may not be complete and all inclusive of all the testing and or work up that you may need to determine your ailment or severity of your illness. It is very important that you follow up as instructed or that you return to the Emergency Department should you have concerns or if your condition changes or worsens in any way. Coding Level of Care Code ED Camera Supervisor for Seun Klein Exam Comprehensive
== END 2021-12-27 18:40 | disposition home or self-care (01) ==
PROVIDERS: Emergency Provider Physician Assistant
DX: Z23 Encounter for immunization (principal)
CPT/HCPCS: 90471; 90675; 99283

== ENCOUNTER → 2022-01-11 15:07 | Outpatient (BNVA) | payer OTHER, SELFPAY | PROVIDERS: Visit Provider Nurse Practitioner Psychiatric/Mental Health | DX: Z03.89 Encounter for observation for other suspected diseases and conditions ruled out (principal); F15.20 Other stimulant dependence, uncomplicated; F12.20 Cannabis dependence, uncomplicated; F43.10 Post-traumatic stress disorder, unspecified; F33.3 Major depressive disorder, recurrent, severe with psychotic symptoms; F17.210 Nicotine dependence, cigarettes, uncomplicated | CPT/HCPCS: 80053; 80307 ==

== ENCOUNTER → 2022-02-16 14:19 | Outpatient (BNVA) | payer OTHER, SELFPAY | PROVIDERS: Visit Provider Nurse Practitioner Psychiatric/Mental Health | DX: Z03.89 Encounter for observation for other suspected diseases and conditions ruled out (principal); Z79.899 Other long term (current) drug therapy; F15.20 Other stimulant dependence, uncomplicated; F33.3 Major depressive disorder, recurrent, severe with psychotic symptoms; F12.20 Cannabis dependence, uncomplicated; F17.210 Nicotine dependence, cigarettes, uncomplicated; F43.10 Post-traumatic stress disorder, unspecified | CPT/HCPCS: 80306 ==

== ENCOUNTER 2022-11-02 16:35 | Emergency (ER) | payer MEDICAID, SELFPAY ==
[2022-11-02 16:55] VITALS: BP 142/100; PULSE 89; RESP 18; TEMP 37.1; O2SAT 98
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
[2022-11-02] MEDS: cephALEXin 500 mg Capsule PO (19:23)
== END 2022-11-02 19:47 | disposition home or self-care (01) ==
PROVIDERS: Emergency Provider Nurse Practitioner Family
DX: M79.5 Residual foreign body in soft tissue (principal); W34.00XA Accidental discharge from unspecified firearms or gun, initial encounter; F17.210 Nicotine dependence, cigarettes, uncomplicated
CPT/HCPCS: 73590; 99283

== ENCOUNTER 2022-11-04 18:47 | Emergency (ER) | payer MEDICAID, SELFPAY ==
[2022-11-04 19:13] VITALS: BP 133/91; PULSE 77; RESP 18; TEMP 36.7; O2SAT 97; BMI 26.3
[2022-11-04 22:29] VITALS: BP 118/98; PULSE 65; O2SAT 95
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
[2022-11-04] MEDS: dexamethasone 4 mg Tablet 10 MG PO (23:35)
[2022-11-04] MEDS: clindamycin 150 mg Capsule 300 MG PO (23:35)
[2022-11-04 23:36] VITALS: RESP 18; O2SAT 98
[2022-11-04] MEDS: oxyCODONE-APAP 5-325 mg Tablet 2 TAB PO (23:36)
[2022-11-04 23:38] VITALS: BP 111/85; PULSE 75; RESP 18; O2SAT 98
[2022-11-04 23:39] VITALS: BP 111/85; PULSE 62; RESP 18; O2SAT 98
== END 2022-11-04 23:45 | disposition home or self-care (01) ==
PROVIDERS: Emergency Provider Emergency Medicine
DX: M79.5 Residual foreign body in soft tissue (principal); W32.0XXA Accidental handgun discharge, initial encounter; F17.210 Nicotine dependence, cigarettes, uncomplicated
CPT/HCPCS: 99283; J8540

== ENCOUNTER → 2022-12-26 11:19 | Outpatient (BNVA) | payer OTHER, SELFPAY | PROVIDERS: Visit Provider Nurse Practitioner Psychiatric/Mental Health | DX: Z79.899 Other long term (current) drug therapy (principal); Z03.89 Encounter for observation for other suspected diseases and conditions ruled out; F33.3 Major depressive disorder, recurrent, severe with psychotic symptoms; F15.20 Other stimulant dependence, uncomplicated; F12.20 Cannabis dependence, uncomplicated; F43.10 Post-traumatic stress disorder, unspecified | CPT/HCPCS: 80053; 80061; 81001; 83036 ==

== ENCOUNTER 2022-12-28 13:07 | Emergency (ER) | payer MEDICAID, SELFPAY ==
[2022-12-28 13:12] VITALS: BP 150/101; PULSE 108; RESP 18; TEMP 36.7; O2SAT 96
--- NOTE | 2022-12-28 13:52 | W.ED.FEMALGU ---
HPI - Female Genitourinary General: Chief complaint: Urogenital-Female Stated complaint: urinary Time Seen by Provider: 12/28/22 13:41 Source: patient Mode of arrival: ambulatory Limitations: no limitations History of Present Illness: Patient is a 42-year-old female here for concerns of a possible urinary tract infection. Patient states she has been having dysuria, bladder spasms, urgency, and cloudy odorous urine over the past several days. She states she is not having any flank pain or abdominal pain apart from again what feels like bladder spasms. She is not having any vaginal discharge or concern for sexually transmitted infections. No fevers. Has tried many different OTC medications without relief. MD elicited complaint: dysuria and UTI Onset (ago): day(s) Severity: moderate Female Urogenital Radiation: Suprapubic Quality of pain: other ( spasms ) Consistency: intermittent Vaginal discharge: none Vaginal bleeding: none Urinary symptoms: Dysuria, Foul Smelling Urine and Urgency Exacerbating factors: urination Relieving factors: none Associated symptoms: Reports no associated symptoms; Deny abdominal pain, headache(s) or nausea Treatment prior to arrival: none Sexual activity: Yes Patient : No Review of Systems Const: Denies: fever(s) Card: Denies: chest pain Resp: Denies: dyspnea GI: Denies: abdominal pain, nausea, vomiting, diarrhea or change in bowel habits : Reports: dysuria and urinary urgency; Denies: flank pain, hematuria or pelvic pain Musc: Denies: neck pain, back pain, extremity pain or joint pain Skin/Breast: Denies: rash Neuro: Denies: headache(s) PFSH ED PFSH: Medical History Anxiety Cannabis dependence, uncomplicated Methamphetamine use disorder, severe, dependence Nicotine dependence, cigarettes, uncomplicated Psychiatric care PTSD (post-traumatic stress disorder) Social History Smoking and tobacco status: current every day smoker Physical Exam Const: COMMON NORMALS: no acute distress, average body habitus, patient oriented x3, no limitations, alert and well nourished Resp: COMMON NORMALS: normal respiratory effort and clear to auscultation bilaterally AUSCULTATION: clear to auscultation bilaterally Cardio: COMMON NORMALS: regular rate and regular rhythm RATE: regular rate RHYTHM: regular rhythm GI: COMMON NORMALS: Normal to inspection, nondistended, normoactive bowel sounds present, Soft to palpation, non-tender, No hepatosplenomegaly present and no masses INSPECTION: Yes normal to inspection PALPATION: Yes Soft to palpation and Yes No hepatosplenomegaly present : COMMON NORMALS: Yes no CVA tenderness BLADDER/KIDNEY EXAM: Yes no CVA tenderness Back/Pelvis: COMMON NORMALS: no CVA tenderness Neuro: COMMON NORMALS: patient oriented x3 SENSORIUM/ORIENTATION: Yes alert Course Vital Signs: Vital signs: Vital Signs Temperature 98.1 F 12/28/22 13:12 Pulse Rate 108 H 12/28/22 13:12 Respiratory Rate 18 12/28/22 13:12 Blood Pressure 150/101 12/28/22 13:12 Pulse Oximetry 96 12/28/22 13:12 Oxygen Delivery Me thod Room Air 12/28/22 13:12 MDM - Female Medical Decision Making UA is cloudy with 2+ blood, 2+ leuks, and too numerous to count WBCs. We will culture and placed on Keflex. She is requesting Diflucan in case she develops a yeast infection following antibiotic therapy. This was also provided to her. Return ED precautions given. Lab Data Laboratory Results Urine Color Yellow (Yellow) 12/28/22 13:25 Urine Appearance Cloudy (CLEAR) A 12/28/22 13:25 Urine pH 5 (5-7) 12/28/22 13:25 Ur Specific [place] 1.030 (1.005-1.030) 12/28/22 13:25 Urine Protein Trace (Negative) 12/28/22 13:25 Urine Glucose (UA) Norm (Normal) 12/28/22 13:25 Urine Ketones 1+ (Negative) H 12/28/22 13:25 Urine Blood 2+ (Negative) H 12/28/22 13:25 Urine Nitrate Negative (Negative) 12/28/22 13:25 Urine Bilirubin Neg (Negative) 12/28/22 13:25 Urine Urobilinogen Norm mg/dL (Negative) 12/28/22 13:25 Ur Leukocyte Esterase 2+ (Negative) H 12/28/22 13:25 Urine RBC 5-10 /hpf (0-2) H 12/28/22 13:25 Urine WBC Too numerous to cnt /hpf (0-5) H 12/28/22 13:25 Ur Squamous Epith Cells 0-4 /hpf (0-5) H 12/28/22 13:25 Amorphous Sediment Not Reportable 12/28/22 13:25 Urine Bacteria Trace /hpf (NONE) 12/28/22 13:25 Urine Mucus 1+ /hpf 12/28/22 13:25 No radiology studies performed this visit Discharge Plan Discharge Patient Disposition: Home Clinical Impression: Cystitis Condition: Stable Prescriptions: New cephalexin 500 mg capsule 500 mg PO Q6H 7 Days Qty: 28 0RF Diflucan 150 mg tablet 150 mg PO DAILY Qty: 1 0RF Rx Instructions: administer on day 1 of therapy No Action venlafaxine [Effexor XR] 150 mg capsule,extended release 24hr 150 mg PO QAM Qty: 30 4RF Rx Instructions: Take one capsule every morning olanzapine [Zyprexa Zydis] 5 mg tablet,disintegrating 5 mg PO DAILY PRN (Reason: severe agitation) Qty: 30 4RF Rx Instructions: May take one tab daily as needed for severe agitation Discharge Orders: Discharge ED (Routine); Ordered 12/28/22 Ordered By: Kristie Dove Patient Instructions: Dysuria (ED), Urinary Tract Infection in (ED) Coding Level of Care Code ED Cutter Grinder for Seun Klein
[2022-12-28 14:32] LABS: Glucose Urine UA Norm (Normal); Protein Urine Trace (Negative); Urine Appearance Cloudy (CLEAR); Urine Color Yellow (Yellow); pH Urine 5 (5-7)
[2022-12-28 14:33] LABS: Add Urine Culture? No; Add Urine Microscopic? YES; Bacteria Urine TRACE /hpf; Bilirubin Urine Neg (Negative); Blood Urine 2+ (Negative); Ketones Urine 1+ (Negative); Leukocyte Esterase Urine 2+ (Negative); Mucus Urine 1+ /hpf; Nitrate Urine Negative (Negative); Squamous Epithelial Cell Urine 0-4 /hpf (0-5); Urobilinogen Urine Norm (Negative); WBC Urine TOO NUMEROUS TO CNT /hpf (0-5)
== END 2022-12-28 14:26 | disposition home or self-care (01) ==
PROVIDERS: Emergency Provider Physician Assistant
DX: N30.90 Cystitis, unspecified without hematuria (principal); F17.210 Nicotine dependence, cigarettes, uncomplicated
CPT/HCPCS: 81001; 87086; 99283

== ENCOUNTER 2023-09-23 17:15 | Emergency (ER) | payer SELFPAY ==
[2023-09-23 17:21] VITALS: BP 131/90; PULSE 87; RESP 17; TEMP 37; O2SAT 96; BMI 31.0
--- NOTE | 2023-09-23 17:42 | ED_ITS ---
HPI - Abdominal Pain 2 General: Chief Complaint: Abdominal Pain Stated Complaint: pain RT abd Time Seen by Provider: 09/23/23 17:35 History of Present Illness: 42-year-old female with history of metha mphetamine abuse, tobacco dependence, anxiety and PTSD who presents to the emergency room with abdominal pain. She said this morning she started with some right lower quadrant abdominal pain and then she was moving and felt a pop and it has been very severe. Intermittent. No nausea or vomiting. No fevers. No dysuria. Review of Systems 2 Narrative: Constitutional symptoms: Negative except as documented in HPI. Skin symptoms: Negative except as documented in HPI. Eye symptoms: Negative except as documented in HPI. ENMT symptoms: Negative except as documented in HPI. Respiratory symptoms: Negative except as documented in HPI. Cardiovascular symptoms: Negative except as documented in HPI. Gastrointestinal symptoms: Negative except as documented in HPI. Genitourinary symptoms: Negative except as documented in HPI. Musculoskeletal symptoms: Negative except as documented in HPI. Neurologic symptoms: Negative except as documented in HPI. Psychiatric symptoms: Negative except as documented in HPI. Endocrine symptoms: Negative except as documented in HPI. PFSH ED 2 PFSH: Medical History Methamphetamine use disorder, severe, dependence Reported last use 12/15/22 Psychiatric care Nicotine dependence, cigarettes, uncomplicated Cannabis dependence, uncomplicated Daily use Anxiety PTSD (post-traumatic stress disorder) Social History Smoking and tobacco/nicotine status: current every day tobacco/nicotine user Physical Exam 2 Narrative: EXAM NARRATIVE: General: Alert, no acute distress. Skin: Warm, dry. Head: Normocephalic, atraumatic. Neck: Supple, trachea midline. Eye: Extraocular movements are intact. Ears, nose, mouth and throat: mucosa moist. Cardiovascular: Regular, Normal peripheral perfusion. Respiratory: Lungs are clear to auscultation, respirations are non-labored, breath sounds are equal, Symmetrical chest wall expansion. Gastrointestinal: Soft, moderate right lower quadrant pain, Non distended, Normal bowel sounds. Musculoskeletal: Normal ROM, no deformity. Neurological: Alert and oriented, No focal neurological deficit observed. Psychiatric: Cooperative, patient is very tearful Course 2 Vital Signs: Vital signs: Vital Signs Temperature 98.6 F 09/23/23 17:21 Pulse Rate 87 09/23/23 17:21 Respiratory Rate 17 09/23/23 17:21 Blood Pressure 131/90 09/23/23 17:21 Pulse Oximetry 96 09/23/23 17:21 Oxygen Delivery Me thod Room Air 09/23/23 17:21 MDM - Abdominal Pain Medical Decision Making Medical decision making: Differential diagnosis for this patient with right lower quadrant abdominal pain including but not limited to and based on the above HPI, review of systems and physical exam: Ureterolithiasis. Urinary tract infection. Appendicitis. colitis. small bowel obstruction. Crohn's flare. Pancreatitis. Cholelithiasis or cholecystitis. Hepatitis. Diverticulitis. Constipation. ovarian cyst. ovarian torsion Workup: Orders were placed to evaluate differential diagnosis based on the above differential, HPI and exam: Lab Review: Laboratory results were reviewed and interpreted by myself the emergency room physician. No leukocytosis. White count is 9. Hemoglobin is 14.6. BUN and creatinine are [address] of the abdomen pelvis with contrast: IMPRESSION: 1. Left ovary 13.6 mm peripherally enhancing lesion suggestive of a partially collapsed ovarian follicle. 2. Small umbilical hernia containing omentum without bowel. 3. Hepatic steatosis. Reexamination: Patient says she feels much better. Pain is improved. No altered mental status. No increased work of breathing. Assessment and plan: Abdominal pain - Discharged home - Discussed findings and plan with patient. Answered any questions. - All laboratory values were reviewed and interpreted personally by myself, the ER physician - All imaging was reviewed and interpreted personally by myself, the ER physician. - Evaluation and treatment of this problem were appropriate in the emergency setting Lab Data 09/23/23 18:32 09/23/23 18:32 Labs/Radiology: Radiology Impressions Abdomen/Pelvis CT 09/23/23 19:00 IMPRESSION: 1. Left ovary 13.6 mm peripherally enhancing lesion suggestive of a partially collapsed ovarian follicle. 2. Small umbilical hernia containing omentum without bowel. 3. Hepatic steatosis. Laboratory Results WBC 9.00 10^3/uL (3.29-11.43) 09/23/23 18:32 RBC 4.85 10^6/uL (3.85-5.65) 09/23/23 18:32 Hgb 14.60 g/dL (11.27-16.99) 09/23/23 18:32 Hct 43.1 % (36-47) 09/23/23 18:32 MCV 88.9 fl (85-98) 09/23/23 18:32 MCH 30.1 pg (27-33) 09/23/23 18: MCHC 33.9 g/dL (30-55) 09/23/23 18:32 RDW 12.7 % (12.1-15.1) 09/23/23 18:32 Plt Count 301 10^3/cmm (157-399) 09/23/23 18:32 MPV 9.5 fL (7.4-10.4) 09/23/23 18:32 Neut % (Auto) 63.5 % 09/23/23 18:32 Lymph % (Auto) 27.8 % 09/23/23 18:32 [place] % (Auto) 6.8 % 09/23/23 18:32 Eos % (Auto) 1.1 % 09/23/23 18: Baso % (Auto) 0.4 % 09/23/23 18: Neut # (Auto) 5.71 10^3/uL (1.8-7.7) 09/23/23 18:32 Lymph # (Auto) 2.5 10^3/uL (0.8-4.8) 09/23/23 18:32 [place] # (Auto) 0.6 10^3/uL (0.2-0.9) 09/23/23 18:32 Eos # (Auto) 0.1 10^3/uL (0.0-0.8) 09/23/23 18: Baso # (Auto) 0.0 10^3/uL (0.0-0.1) 09/23/23 18: Nucleated RBC % (auto) 0 % 09/23/23 18: Nucleated RBCs # 0.0 /100WBC 09/23/23 18:32 Sodium 140 mmol/L (136-145) 09/23/23 18:32 Potassium 3.6 mmol/L (3.5-5.1) 09/23/23 18:32 Chloride 104 mmol/L (98-107) 09/23/23 18: Carbon Dioxide 24 mmol/L (22-29) 09/23/23 18:32 Anion Gap 15.6 (5-19) 09/23/23 18:32 BUN 11 mg/dL (6-20) 09/23/23 18:32 Creatinine 0.8 mg/dL (0.5-0.9) 09/23/23 18:32 GFR Calculation 77.9 mL/min (90-130) L 09/23/23 18:32 Glucose 98 mg/dL (65-115) 09/23/23 18:32 Calculated Osmolality 289 mOsm/kg (285-295) 09/23/23 18:32 Lactic Acid 0.9 mmol/L (0.5-2.2) 09/23/23 18:32 Calcium 9.6 mg/dL (8.5-10.5) 09/23/23 18:32 Total Bilirubin 0.2 mg/dL (0.15-1.2) 09/23/23 18:32 AST 10 U/L (0-32) 09/23/23 18:32 ALT 15 U/L (0-33) 09/23/23 18:32 Alkaline Phosphatase 90 U/L (35-105) 09/23/23 18:32 C-Reactive Protein 18.3 mg/L (0.0-4.9) H 09/23/23 18:32 Total Protein 7.5 g/dL (6.6-8.7) 09/23/23 18:32 Albumin 4.2 g/dL (3.5-5.2) 09/23/23 18:32 Globulin 3.3 g/dL (1.3-4.6) 09/23/23 18:32 HCG, Qual Negative (Negative) 09/23/23 18:26 Urine Color Dark yellow (Yellow) 09/23/23 18:08 Urine Appearance Clear (CLEAR) 09/23/23 18:08 Urine pH 5 (5-7) 09/23/23 18:08 Ur Specific [place] 1.020 (1.005-1.030) 09/23/23 18:08 Urine Protein Neg (Negative) 09/23/23 18:08 Urine Glucose (UA) Norm (Normal) 09/23/23 18:08 Urine Ketones Negative (Negative) 09/23/23 18:08 Urine Blood Neg (Negative) 09/23/23 18:08 Urine Nitrate Negative (Negative) 09/23/23 18:08 Urine Bilirubin Neg (Negative) 09/23/23 18:08 Urine Urobilinogen Neg mg/dL (Negative) 09/23/23 18:08 Ur Leukocyte Esterase Negative (Negative) 09/23/23 18:08 Urine RBC 0-4 /hpf (0-2) H 09/23/23 18:08 Urine WBC 0-4 /hpf (0-5) H 09/23/23 18:08 Ur Squamous Epith Cells 5-10 /hpf (0-5) H 09/23/23 18:08 Amorphous Sediment 1+ /hpf 09/23/23 18:08 Urine Bacteria 1+ /hpf (NONE) H 09/23/23 18:08 Urine Mucus 1+ /hpf 09/23/23 18:08 Urine Opiates Screen Negative ng/mL (Negative) 09/23/23 18:08 Ur Barbiturates Screen Negative ng/mL (Negative) 09/23/23 18:08 Ur Phencyclidine Scrn Negative ng/mL (Negative) 09/23/23 18:08 Ur Amphetamines Screen Negative ng/mL (Negative) 09/23/23 18:08 U Benzodiazepines Scrn Negative ng/mL (Negative) 09/23/23 18:08 Urine Cocaine Screen Negative ng/mL (Negative) 09/23/23 18:08 U Marijuana (THC) Screen Positive ng/mL (Negative) H 09/23/23 18:08 All radiology interpretation(s) finalized by discharge Discharge Plan Discharge Patient Disposition: Home Clinical Impression: Abdominal pain Qualifiers: Abdominal location: right lower quadrant Qualified Code(s): R10.31 - Right lower quadrant pain Condition: Stable Prescriptions: New diclofenac sodium 50 mg tablet,delayed release (DR/EC) 50 mg PO Q12H Qty: 20 0RF No Action albuterol sulfate [Ventolin HFA] 90 mcg/actuation HFA aerosol inhaler 2 puff inhalation Q6H PRN naloxone [Narcan] 4 mg/actuation spray,non-aerosol 4 mg intranasal Q2M PRN (Reason: opioid overdose) Qty: 2 3RF Rx Instructions: spray 1 dose into 1 nostril; alt nostrils w each dose until help arrives olanzapine [Zyprexa Zydis] 5 mg tablet,disintegrating 5 mg PO DAILY PRN (Reason: severe agitation) Qty: 30 4RF Rx Instructions: May take one tab daily as needed for severe agitation prednisone 20 mg tablet 40 mg PO DAILY 4 Days Qty: 8 0RF cyclobenzaprine 10 mg tablet 10 mg PO TID PRN (Reason: muscle spasm) Qty: 20 0RF venlafaxine [Effexor XR] 150 mg capsule,extended release 24hr 150 mg PO QAM Qty: 30 4RF Rx Instructions: Take one capsule every morning Discharge Orders: Discharge ED (Routine); Ordered 09/23/23 Ordered By: Shona Marinelli Discharge Diet: Usual diet Discharge Activity: Resume usual activity Patient Instructions: Abdominal Pain (ED), Opioid Safety, Pain Management Activity Restrictions/Additional Instructions: Thank you for choosing [facility] for your healthcare needs today. Please realize this is an emergency room and that we are providing you with a medical screening exam and this may not be complete and all inclusive of all the testing and or work up that you may need to determine your ailment or severity of your illness. You have been screened and evaluated and felt safe for discharge. Health conditions do change or evolve sometimes and as such it is important that you follow up with your Primary Doctor to be re checked, 3-5 days is a general good time frame for follow up. You are always welcome to return to the ED for re assessment if your symptoms are worsening or you have new concerns Coding Level of Care Code ED Spinning Mule Operator for Seun Klein
[2023-09-23] MEDS: ketorolac 30 mg/mL INJ IVP (18:19)
[2023-09-23 18:48] LABS: Amphetamines Screen Urine Negative (Negative); Barbiturates Screen Urine Negative (Negative); Benzodiazepines Screen Urine Negative (Negative); Cocaine Screen Urine Negative (Negative); Opiate Screen Urine Negative (Negative); PCP Screen Urine Negative (Negative); THC Screen Urine Positive (Negative)
[2023-09-23 18:53] LABS: Amorphous Sediment Urine 1+ /hpf; Bacteria Urine 1+ /hpf; Bilirubin Urine Neg (Negative); Blood Urine Neg (Negative); Glucose Urine UA Norm (Normal); Ketones Urine Negative (Negative); Leukocyte Esterase Urine Negative (Negative); Mucus Urine 1+ /hpf; Nitrate Urine Negative (Negative); Protein Urine Neg (Negative); RBC Urine 0-4 /hpf (0-2); Urine Appearance Clear (CLEAR); Urine Color Dark Yellow (Yellow); Urobilinogen Urine Neg (Negative); WBC Urine 0-4 /hpf (0-5); pH Urine 5 (5-7)
[2023-09-23 18:53] LABS: Basophils % 0.4 %; Eosinophils # 0.1 10^3/uL (0.0-0.8); Eosinophils % 1.1 %; Hematocrit 43.1 % (36-47); Lymphocytes # 2.5 10^3/uL (0.8-4.8); Lymphocytes % 27.8 %; Mean Corpuscular HGB Conc 33.9 g/dL (30-55); Mean Corpuscular Hemoglobin 30.1 pg (27-33); Mean Corpuscular Volume 88.9 fl (85-98); Mean Platelet Volume 9.5 fL (7.4-10.4); Monocytes # 0.6 10^3/uL (0.2-0.9); Monocytes % 6.8 %; Neutrophils # 5.71 10^3/uL (1.8-7.7); Neutrophils % 63.5 %; Nucleated Red Blood Cells % 0 %; Platelet Count 301 10^3/cmm (157-399); Red Blood Count 4.85 10^6/uL (3.85-5.65); Red Cell Distribution Width 12.7 % (12.1-15.1)
[2023-09-23 18:53] LABS: HCG Qualitative Urine. Negative (Negative)
--- NOTE | 2023-09-23 19:00 | CTR_ITS ---
PROCEDURE INFORMATION: Exam: CT Abdomen And Pelvis With Contrast Exam date and time: 09/23/2023 7:11 PM Age: 42 years old Clinical indication: Abdominal pain; Localized; Right lower quadrant (rlq); Patient HX: C/O rlq/pelvic pain starting today; Additional info: Rlq abdominal pain TECHNIQUE: Imaging protocol: Computed tomography of the abdomen and pelvis with contrast. Radiation optimization: All CT scans at this facility use at least one of these dose optimization techniques: automated exposure control; mA and/or kV adjustment per patient size (includes targeted exams where dose is matched to clinical indication); or iterative reconstruction. Contrast material: OMNI 350; Contrast volume: 100 ml; Contrast route: INTRAVENOUS (IV); COMPARISON: CR XR chest 1V portable [id number] 06/16/2021 10:01 PM RADIATION DOSE METRICS: Total DLP (mGy-cm): 706.47 FINDINGS: Liver: Hepatic steatosis. Gallbladder and bile ducts: Normal. No calcified stones. No ductal dilation. Pancreas: Normal. No ductal dilation. Spleen: Normal. No splenomegaly. Adrenal glands: Normal. No mass. Kidneys and ureters: Normal. No hydronephrosis. Stomach and bowel: Unremarkable. No obstruction. No mucosal thickening. Appendix: No evidence of appendicitis. Intraperitoneal space: Unremarkable. No free air. No significant fluid collection. Vasculature: Unremarkable. No abdominal aortic aneurysm. Lymph nodes: Unremarkable. No enlarged lymph nodes. Urinary bladder: Unremarkable as visualized. Reproductive: Left ovary 13.6 mm peripherally enhancing lesion suggestive of a partially collapsed ovarian follicle. Bones/joints: Unremarkable. No acute fracture. Soft tissues: Small umbilical hernia containing omentum without bowel. CT/CT abdomen pelvis w con* [id number] IMPRESSION: 1. Left ovary 13.6 mm peripherally enhancing lesion suggestive of a partially collapsed ovarian follicle. 2. Small umbilical hernia containing omentum without bowel. 3. Hepatic steatosis.
[2023-09-23 19:10] LABS: Alanine Aminotransferase 15 U/L (0-33); Albumin Level 4.2 g/dL (3.5-5.2); Alkaline Phosphatase 90 U/L (35-105); Anion Gap 15.6 (5-19); Aspartate Amino Transferase 10 U/L (0-32); Blood Urea Nitrogen 11 mg/dL (6-20); C Reactive Protein 18.3 mg/L (0.0-4.9); Calcium 9.6 mg/dL (8.5-10.5); Carbon Dioxide 24 mmol/L (22-29); Chloride 104 mmol/L (98-107); Creatinine Clr Calc Pharmacy 96.3617; Globulin 3.3 g/dL (1.3-4.6); Glomerular Filtration Rate 77.9 mL/min (90-130); Glucose 98 mg/dL (65-115); Osmolality Calculated 289 mOsm/kg (285-295); Potassium 3.6 mmol/L (3.5-5.1); Sodium 140 mmol/L (136-145); Total Bilirubin 0.2 mg/dL (0.15-1.2); Total Protein 7.5 g/dL (6.6-8.7)
[2023-09-23] MEDS: iohexol 350 mg/mL 500 mL Btl (per mL) IV (19:12)
[2023-09-23 19:13] LABS: Lactic Sepsis W/Reflex 0.9 mmol/L (0.5-2.2)
[2023-09-23 21:05] VITALS: BP 120/89; PULSE 74; RESP 17; O2SAT 95
== END 2023-09-23 21:12 | disposition home or self-care (01) ==
PROVIDERS: Emergency Provider Emergency Medicine
DX: R10.31 Right lower quadrant pain (principal); Z72.0 Tobacco use
CPT/HCPCS: 36415; 74177; 80053; 80306; 81001; 81025; 83605; 85025; 86140; 96374; 99285; J1885; Q9967

== ENCOUNTER 2024-01-01 12:00 | Outpatient (CLI) | payer MEDICAID, SELFPAY ==
--- NOTE | 2024-01-01 12:11 | MM_ITS ---
WS: [id number] DIAGNOSTIC BILATERAL DIGITAL BREAST TOMOSYNTHESIS MAMMOGRAPHY WITH CAD LEFT breast ultrasound, limited HISTORY: PAIN OF L BREAST COMPARISON: None available. TECHNIQUE: Bilateral craniocaudad, mediolateral oblique, and mediolateral views are submitted with to mosynthesis and SM. Spot compression LEFT CC and MLO. Computer aided detection utilized. Breast composition: The breasts are extremely dense, which lowers the sensitivity of mammography. Dense fibroglandular density in the upper outer quadrant of the LEFT breast. There may be an obscure d mass present which is oval in shape. Ultrasound to follow. Additional areas of increased density th roughout each breast but no distortion or calcifications. LEFT breast ultrasound, limited. Oval well-circumscribed anechoic cystic mass is identified at 2:00, 4 cm from the nipple. This corres ponds to the palpable abnormality also. Mass measures 2.3 x 3.4 x 1.1 cm. No solid component. Additio nal very dense fibroglandular tissue in the upper outer quadrant of the LEFT breast. No mass. MM/MM diag BI tomosynthesis [id number] IMPRESSION: BI-RADS: 2 - Benign FOLLOW UP: 1 Year Follow-up
== END 2024-01-01 12:07 | disposition home or self-care (01) ==
PROVIDERS: Visit Provider Nurse Practitioner Family
DX: N63.21 Unspecified lump in the left breast, upper outer quadrant (principal); R92.333 Mammographic heterogeneous density, bilateral breasts; N64.4 Mastodynia
CPT/HCPCS: 76642; 77062; G0279

== ENCOUNTER → 2024-12-06 12:33 | Outpatient (BNVA) | payer OTHER, SELFPAY | PROVIDERS: Visit Provider Registered Nurse Neonatal Intensive Care | DX: R39.9 Unspecified symptoms and signs involving the genitourinary system (principal); N39.0 Urinary tract infection, site not specified | CPT/HCPCS: 81000; 87086 ==

== ENCOUNTER 2025-01-13 09:44 | Outpatient (CLI) | payer MEDICAID, SELFPAY ==
--- NOTE | 2025-01-13 09:53 | MM_ITS ---
WS: [id number] DIAGNOSTIC BILATERAL DIGITAL BREAST TOMOSYNTHESIS MAMMOGRAPHY WITH CAD LEFT breast ultrasound, limited HISTORY: MASS OF L BREAST COMPARISON: 01/01/2024, ultrasound 01/01/2024 TECHNIQUE: Bilateral craniocaudad, mediolateral oblique, and mediolateral views are submitted with tomosynthesis and SM. Spot compression LEFT CC and MLO. Computer aided detection utilized. Breast composition: The breasts are heterogeneously dense, which may obscure small masses. Palpable abnormality in the upper outer quadrant of the LEFT breast towards the axillary tail is reidentified. This mass has been previously described and evaluated. Mass measures 2.3 x 2.4 x 2.8 cm. Margins are partially obscured. Mass is of increased density and has increased in size as compared to 01/01/2024. There is an additional area of new asymmetry in the anterior to mid depth of the upper outer quadrant which will also be evaluated by ultrasound. RIGHT breast is negative. No suspicious grouping of calcifications or mass. LEFT breast ultrasound, limited. There is a well-circumscribed cystic mass which is reidentified in the upper outer quadrant of the LEFT breast at 2:00, 4 cm from the nipple. Cyst measures 2.7 x 1.9 x 2.2 cm. No additional abnormality is noted in the upper outer quadrant. Note: Palpable area in the LEFT breast is a cyst which does appear to have slightly increased in size since 01/01/2024. As this mass is causing some pain and discomfort ultrasound-guided aspiration may be performed which may provide some relief. Often times the cyst will recur. MM/MM diag BI tomosynthesis 71036 IMPRESSION: BI-RADS: 2 - Benign FOLLOW UP: 1 Year Follow-up
== END 2025-01-13 09:45 | disposition home or self-care (01) ==
PROVIDERS: Visit Provider Nurse Practitioner Family
DX: N63.32 Unspecified lump in axillary tail of the left breast (principal); R92.8 Other abnormal and inconclusive findings on diagnostic imaging of breast
CPT/HCPCS: 76642; 77062; G0279

== ENCOUNTER 2025-02-11 06:02 | Day surgery (SDC) | payer MEDICAID, SELFPAY ==
[2025-02-11] VITALS (11 sets, daily range): BP systolic 120–143; BP diastolic 87–110; PULSE 78–99; RESP 16–24; TEMP 36–36.4; O2SAT 91–100; BMI 29.1
--- NOTE | 2025-02-11 07:02 | W.PM.OPSUD ---
Surgery/Procedure H&P Update DATE OF PROCEDURE: February 11, 2025 DATE H&P PERFORMED: 02/04/25 H&P UPDATE INFORMATION: I have reviewed H&P completed within last 30 days, I have examined patient prior to procedure, No changes to prior documentation and Risks and benefits of the procedure reviewed CHANGES TO PREVIOUS DOCUMENTATION: Left breast lesion marked with patient's input. PLANNED PROCEDURE: Operation Date: 02/11/25 08:20 Proposed Procedures p LEFT Breast Lumpectomy 20647 N64.59(Left) - Tee Miller MD
--- NOTE | 2025-02-11 07:28 | ANES.PREANE2 ---
Pre-Anesthetic Assessment Height/Weight: Height 5 ft 5 in Weight 175 lb Temp Pulse Resp BP Pulse Ox O2 Del Method 96.8 F L 78 17 143/105 98 Room Air 02/11/25 06:58 02/11/25 06:58 02/11/25 06:58 02/11/25 06:58 02/11/25 06:58 02/11/25 06:58 Preop Diagnosis: Breast cyst Operation Date: 02/11/25 08:20 Proposed Procedures p LEFT Breast Lumpectomy 34913 N64.59(Left) - Tee Miller MD Was Beta Nando taken within 24 hours: N/A Was Clonidine taken within 24 hours: N/A Last intake: Intake Last Liquid Date 02/10/25 Last Liquid Time 23:00 Last Solid Date 02/10/25 Last Solid Time 23:00 Social Tobacco and No alcohol Exam alert, oriented x 3, clear to auscultation bilaterally and regular rate & rhythm Airway Submandibular: within normal limits Cervical ROM: within normal limits Mallampati: Class II Comments: Comments: Missing multiple teeth. Very questionable dentition. Denies any loose teeth Anesthetic Plan ASA status: 3 Anesthesia: General Other: No prior issues with anesthesia NPO since yesterday evening History of hypertension on lisinopril, taken yesterday Smokes nicotine and marijuana Prior methamphetamine dependence, in remission. Last use was 2 years ago METs greater than 4 Plan for GETA Medications/Allergies Home Medications ?Medication ?Instructions ?Recorded ?Confirmed ?Last Taken ?Type albuterol sulfate 90 mcg/actuation 2 puff inhalation Q6H PRN sob 02/21/23 02/10/25 Unknown History aerosol inhaler (Ventolin HFA) lisinopril 2.5 mg tablet 2.5 mg PO DAILY 12/06/24 02/10/25 02/10/25 History venlafaxine 37.5 mg 37.5 mg PO .morning 12/31/24 02/10/25 02/10/25 History capsule,extended release 24 hr (Effexor XR) Allergies Allergy/AdvReac Type Severity Reaction Status Date / Time clindamycin Allergy Severe ALGY-Rash Verified 02/10/25 14:04 haloperidol (From Haldol) Allergy Severe ALGY-Anaphy Verified 02/10/25 14:04 laxis Sulfa (Sulfonamide Allergy Severe ALGY-Swell Verified 02/10/25 14:04 Antibiotics) Lip/Tongue/Throat spicy foods Allergy Intermediate ALGY-Rash Uncoded 02/10/25 14:04 Current Medications Generic Name Dose Route Start Last Admin Trade Name Marce PRN Reason Stop Dose Admin Sodium Chloride 1,000 mls @ 30 mls/hr 02/11/25 06:30 02/11/25 07:11 Sodium Chloride 0.9% IV 02/12/25 06:29 30 mls/hr .Q24H ALEC Administration PFSH Anesthesia Medical History Major depressive disorder, recurrent, severe with psychotic symptoms Chronic post-traumatic stress disorder Methamphetamine dependence in remission last use December 15, 2022 Psychiatric care Nicotine dependence, cigarettes, uncomplicated Cannabis dependence, uncomplicated Daily use Social History Smoking and tobacco/nicotine status: current every day tobacco/nicotine user
[2025-02-11] MEDS: ceFAZolin 2,000 mg SDV 2000 MG IVP (09:19)
--- NOTE | 2025-02-11 10:16 | P.BOP_ITS ---
Date of Procedure: 02/11/2025 Surgeon: Dr. Miller Custodial Operations Manager(s): N/A Procedure(s) performed: Left breast lumpectomy Findings of the procedure(s): Left breast lumpectomy carried out. Specimen 5 x 3 x 2 cm. Marked margins long lateral short superior. Sent specimen to patho logy. Closed incision in multiple layers using 2-0 Vicryl, 3-0 Vicryl, 4-0 Monocryl. Surgical glue. Estimated blood loss: 30 cc Specimen(s) removed: Left breast lump Post-operative diagnosis: Left breast cyst
--- NOTE | 2025-02-11 10:16 | P.OP_ITS ---
Operative Report Date of procedure: February 11, 2025 Pre-op diagnosis: Left breast lump Post-op diagnosis: same Post-op findings: Left breast lumpectomy carried out. Specimen 5 x 3 x 2 cm. Marked margins long lateral short superior. Sent specimen to pathology. Closed incision in multiple layers using 2-0 Vicryl, 3-0 Vicryl, 4-0 Monocryl. Surgical glue. Procedure done: Left breast lumpectomy Implants: N/A Specimens removed/disposition: Left breast lump sent to pathology Pathology: Left breast lump sent to pathology Surgeon: Tee Miller MD Biodiesel Production Associate: N/A Anesthesia: General Estimated blood loss (mL): 30 Complications: N/A Findings: Left breast lumpectomy carried out. Specimen 5 x 3 x 2 cm. Marked margins long lateral short superior. Sent specimen to pathology. Closed incision in multiple layers using 2-0 Vicryl, 3-0 Vicryl, 4-0 Monocryl. Surgical glue. Condition: stable Disposition: same day Brief History: 44-year-old female who presents with a palpable left breast lump. Per imaging compatible with a cyst. Patient wanted this removed. Discussed risk and benefits and patient agreed to proceed with left breast lumpectomy. The site of the palpable lump was marked in the preop area with patient's input. Consent obtained in preop area. Procedure: The left breast was prepped and draped in the usual sterile fashion. General anesthesia induced. Prophylactic antibiotics administered. A curvilinear incision was made over lesion. Subcutaneous tissue was divided and skin flaps were raised superiorly and inferiorly. The lump was palpated and grasped with an Allis clamp. Using electrocautery, breast tissue containing mammographic abnormality was dissected free from the surrounding tissue. Once the lump was dissected it was passed off and sent to pathology. I palpated the breast again and did not encounter any other palpable lumps. Using 2-0 silk suture the specimen was marked, short stitch was placed superiorly and a long stitch was placed laterally. The wound was irrigated with sterile water, hemostasis ensured with electrocautery and several stick ties as well as medium clips. Multiple anchor sutures performed using 2-0 vicryl. Subcutaneous tissues approximated using 3-0 running Vicryl suture and skin was closed using running subcuticular 4-0 Monocryl sutures and Dermabond. Fluffs were used for pressure dressing. A sports bra was applied. Patient was transferred to recovery room and stable condition.
[2025-02-11] MEDS: oxyCODONE 5 mg IR Tab/Cap PO (11:22)
--- NOTE | 2025-02-11 11:25 | ANE.PACU2 ---
Inpatient post-anesthesia follow up: Airway intact: Yes Vital signs: Temperature 97.4 F Pulse Rate 83 Respiratory Rate 18 Blood Pressure 127/98 Pulse Oximetry 99 Oxygen Delivery Me thod Room Air Oxygen Flow Rate Fraction of Inspir ed Oxygen Hydration adequate: Yes Nausea and vomiting: No Pain level: 1 Mental status: Baseline
== END 2025-02-11 11:25 | disposition home or self-care (01) ==
PROVIDERS: PCP Nurse Practitioner Family; Visit Provider Student in an Organized Health Care Education/Training Program
PROC: (CPT 19120; principal; 2025-02-11 08:20)
DX: N63.20 Unspecified lump in the left breast, unspecified quadrant (principal); I10 Essential (primary) hypertension; F17.200 Nicotine dependence, unspecified, uncomplicated; F12.90 Cannabis use, unspecified, uncomplicated; F43.12 Post-traumatic stress disorder, chronic; F33.3 Major depressive disorder, recurrent, severe with psychotic symptoms
CPT/HCPCS: 19301; 88307; J0690; J2250; J2270; J2371; J2405; J2704; J3010; J3490; J7030; J7613; J9999